=== PATIENT | female | born 1940 | race Caucasian/White ===

== ENCOUNTER 2018-07-25 11:12 | Inpatient (IN) | payer MEDICARE, OTHER ==
[~2018-07-25] VITALS: Ht 157.5 cm; Wt 44.8 kg
[2018-07-25] MEDS ORDERED: MORPHINE SULFATE 4 MG/ML, 1ML IVPush PRN (11:30)
[2018-07-25] MEDS ORDERED: SODIUM CHLORIDE FLUSH 10ML SYR IVF ONE (11:30)
[2018-07-25] MEDS ORDERED: MORPHINE SULFATE 4 MG/ML, 1ML ONE (11:43)
[2018-07-25] MEDS ORDERED: PLEASE ENTER ALLERGIES MC SCH (12:00)
[2018-07-25] MEDS ORDERED: ONDANSETRON 2MG/ML, 2ML IVPush PRN (12:00)
[2018-07-25] MEDS ORDERED: PLEASE ENTER HEIGHT AND WEIGHT MC SCH (12:00)
[2018-07-25 12:03] LABS: BASOPHILS # (AUTO) 0.04 x10^3/uL (0-0.1); BASOPHILS % (AUTO) 1 % (0-1); EOSINOPHILS # (AUTO) 0.06 x10^3/uL (0-0.4); EOSINOPHILS % (AUTO) 2 % (1-7); LYMPHOCYTES # (AUTO) 0.83 x10^3/uL (1-3.4); LYMPHOCYTES % (AUTO) 19 % (22-44); MD NO; MEAN CORPUSCULAR HEMOGLOBIN 32.5 pg (27.0-34.8); MEAN CORPUSCULAR VOLUME 95.5 fL (80-100); MEAN PLATELET VOLUME 7.9 fL (7.4-10.4); MONOCYTES # (AUTO) 0.35 x10^3/uL (0.2-0.8); MONOCYTES % (AUTO) 8 % (2-9); NEUTROPHILS # (AUTO) 3.07 x10^3/uL (1.8-6.8); NEUTROPHILS % (AUTO) 71 % (42-75); PLATELET COUNT 463 x10^3/uL (130-400); RED BLOOD COUNT 4.08 x10^6/uL (3.82-5.3); RED CELL DISTRIBUTION WIDTH 13.5 % (9.6-15.2)
[2018-07-25 12:05] LABS: ALANINE AMINOTRANSFERASE 13 U/L (12-78); ALBUMIN 3.3 g/dL (3.4-5.0); ANION GAP 9 mmol/L (5-15); CALCIUM 8.8 mg/dL (8.5-10.1); CHLORIDE 103 mmol/L (98-107); CREATININE 0.45 mg/dL (0.55-1.02)
[2018-07-25 12:07] LABS: ALKALINE PHOSPHATASE 163 U/L (45-117); BILIRUBIN,TOTAL 0.6 mg/dL (0.2-1.0); TOTAL PROTEIN 7.9 g/dL (6.4-8.2)
[2018-07-25 12:21] LABS: MICROSCOPIC NOT IND
[2018-07-25 12:23] LABS: CULTURE INDICATED? NO
[2018-07-25 12:34] LABS: TROPONIN I < 0.015 ng/mL (0.000-0.045)
[2018-07-25] MEDS ORDERED: OMNIPAQUE 350 MG/ML, 100ML BOTTLE ONE (13:15)
[2018-07-25] MEDS ORDERED: VANCOMYCIN PER PHARMACY MC ONE (14:00)
[2018-07-25] MEDS ORDERED: VANCOMYCIN PMX 1GM/200ML 200 ML IV ONE (14:30)
[2018-07-25] MEDS ORDERED: CEFAZOLIN PMX 1GM/50ML 50 ML IV ONE (15:00)
[2018-07-25] MEDS ORDERED: LIDOCAINE 2%, 10ML INFIL ONE (15:00)
[2018-07-25] MEDS ORDERED: CYCLOBENZAPRINE 10 MG TABLET PO PRN (15:30)
[2018-07-25] MEDS ORDERED: GABAPENTIN 300 MG CAPSULE PO PRN (15:30)
[2018-07-25] MEDS ORDERED: HEPARIN 5,000 UNITS/ML, 1ML SQ SCH (15:30)
[2018-07-25] MEDS ORDERED: ENALAPRILAT 1.25 MG/ML, 2ML IVPush PRN (15:30)
[2018-07-25] MEDS ORDERED: ACETAMINOPHEN 325 MG TABLET PO PRN (15:30)
[2018-07-25] MEDS: INSULIN LISPRO 100 UNITS/ML, PEN SQ-INSULIN SCH ×2 (16:00→19:57)
[2018-07-25 16:07] VITALS: BP 129/76
[2018-07-25] MEDS: POTASSIUM CHLORIDE 20 MEQ PACKET PO SCH (17:40)
[2018-07-25] MEDS: SODIUM CHLORIDE 0.9% 1,000 ML IV SCH (17:40)
[2018-07-25] MEDS: ATORVASTATIN 40 MG TABLET PO SCH (19:57)
[2018-07-25 21:10] LABS: PREALBUMIN 24.8 mg/dL (20.0-40.0)
[2018-07-26 01:18] VITALS: BP 154/80
[2018-07-26] MEDS: SODIUM CHLORIDE 0.9% 1,000 ML IV SCH ×2 (05:52→19:52)
[2018-07-26 06:17] LABS: BASOPHILS # (AUTO) 0.06 x10^3/uL (0-0.1); BASOPHILS % (AUTO) 1 % (0-1); EOSINOPHILS # (AUTO) 0.11 x10^3/uL (0-0.4); EOSINOPHILS % (AUTO) 2 % (1-7); LYMPHOCYTES # (AUTO) 1.31 x10^3/uL (1-3.4); LYMPHOCYTES % (AUTO) 25 % (22-44); MD NO; MEAN CORPUSCULAR HEMOGLOBIN 33.2 pg (27.0-34.8); MEAN CORPUSCULAR HGB CONC 34.4 g/dL (32.4-35.8); MEAN CORPUSCULAR VOLUME 96.5 fL (80-100); MEAN PLATELET VOLUME 8.4 fL (7.4-10.4); MONOCYTES # (AUTO) 0.53 x10^3/uL (0.2-0.8); MONOCYTES % (AUTO) 10 % (2-9); NEUTROPHILS # (AUTO) 3.33 x10^3/uL (1.8-6.8); NEUTROPHILS % (AUTO) 62 % (42-75); PLATELET COUNT 403 x10^3/uL (130-400); RED BLOOD COUNT 3.81 x10^6/uL (3.82-5.3); RED CELL DISTRIBUTION WIDTH 13.6 % (9.6-15.2)
[2018-07-26 06:25] LABS: ANION GAP 8 mmol/L (5-15); CALCIUM 8.4 mg/dL (8.5-10.1); CHLORIDE 104 mmol/L (98-107)
[2018-07-26 06:29] LABS: ALANINE AMINOTRANSFERASE 11 U/L (12-78); ALKALINE PHOSPHATASE 139 U/L (45-117); BILIRUBIN,TOTAL 0.6 mg/dL (0.2-1.0); CREATININE 0.39 mg/dL (0.55-1.02); TOTAL PROTEIN 7.2 g/dL (6.4-8.2)
[2018-07-26] MEDS ORDERED: ERGOCALCIFEROL 50,000 UNIT CAPSULE PO SCH (06:30)
[2018-07-26] MEDS: INSULIN LISPRO 100 UNITS/ML, PEN SQ-INSULIN SCH ×4 (07:52→20:59)
[2018-07-26] MEDS: ASPIRIN 81 MG TABLET CHEW PO SCH (07:52)
[2018-07-26] MEDS: POTASSIUM CHLORIDE 20 MEQ PACKET PO SCH (07:52)
[2018-07-26 07:56] VITALS: BP 170/72
[2018-07-26 12:00] VITALS: BP 135/67
[2018-07-26 12:37] LABS: HEMOGLOBIN A1C 9.4 % (4.2-6.3)
[2018-07-26] MEDS ORDERED: POTASSIUM CHLORIDE 20 MEQ PACKET PO SCH (17:00)
[2018-07-26 18:48] VITALS: BP 148/73
[2018-07-26] MEDS: ATORVASTATIN 40 MG TABLET PO SCH (20:36)
[2018-07-26] MEDS ORDERED: INSULIN GLARGINE 100 UNITS/ML, PEN SQ-INSULIN SCH (21:00)
[2018-07-27 01:33] VITALS: BP 124/64
[2018-07-27 05:03] LABS: ALBUMIN 2.9 g/dL (3.4-5.0); ANION GAP 7 mmol/L (5-15); CALCIUM 8.9 mg/dL (8.5-10.1); CHLORIDE 103 mmol/L (98-107)
[2018-07-27 05:09] LABS: ALANINE AMINOTRANSFERASE 13 U/L (12-78); ALKALINE PHOSPHATASE 129 U/L (45-117); BILIRUBIN,TOTAL 0.5 mg/dL (0.2-1.0); CREATININE 0.39 mg/dL (0.55-1.02); TOTAL PROTEIN 7.1 g/dL (6.4-8.2)
[2018-07-27] MEDS ORDERED: ENOXAPARIN 40 MG/0.4 ML SQ SCH (06:30)
[2018-07-27] MEDS: INSULIN LISPRO 100 UNITS/ML, PEN SQ-INSULIN SCH ×2 (07:00→11:00)
[2018-07-27 07:25] VITALS: BP 148/81
[2018-07-27] MEDS ORDERED: POTASSIUM CHLORIDE 20 MEQ PACKET PO SCH (09:00)
[2018-07-27] MEDS: ASPIRIN 81 MG TABLET CHEW PO SCH (09:10)
[2018-07-27] MEDS: SODIUM CHLORIDE 0.9% 1,000 ML IV SCH (09:40)
[2018-07-27 13:10] VITALS: BP 133/67
[2018-07-27] MEDS ORDERED: METF500T PO (14:47)
[2018-07-27] MEDS ORDERED: ATOR40TA78 PO (14:47)
[2018-07-27] MEDS ORDERED: ERGO500017 PO (14:47)
[2018-07-27] MEDS ORDERED: ACET325T14 PO (14:47)
[2018-07-27] MEDS ORDERED: ASPI-515 PO (14:47)
[2018-07-27] MEDS ORDERED: POTA20TA6 PO (14:47)
[2018-07-27] MEDS ORDERED: INSULIN GLARGINE 100 UNITS/ML, PEN SQ-INSULIN SCH (21:00)
== END 2018-07-27 16:51 | disposition home or self-care (01) | DRG 563 ==
LOC: ED 14:19 → EDIP 14:20 → ED 14:41 → 3NE 15:38
PROVIDERS: ADMIT Hospitalist; ATTEND Hospitalist
PROC: 0J9F3ZX Drainage of Left Upper Arm Subcutaneous Tissue and Fascia, Percutaneous Approach, Diagnostic (ICD-10-PCS; principal; 2018-07-27)
DX: S42.212A Unspecified displaced fracture of surgical neck of left humerus, initial encounter for closed fracture (principal); E44.0 Moderate protein-calorie malnutrition; L02.414 Cutaneous abscess of left upper limb; I69.954 Hemiplegia and hemiparesis following unspecified cerebrovascular disease affecting left non-dominant side; Z68.1 Body mass index [BMI] 19.9 or less, adult; E87.6 Hypokalemia; E11.65 Type 2 diabetes mellitus with hyperglycemia; S20.212A Contusion of left front wall of thorax, initial encounter; Z66 Do not resuscitate; R62.7 Adult failure to thrive; R32 Unspecified urinary incontinence; W19.XXXA Unspecified fall, initial encounter; E55.9 Vitamin D deficiency, unspecified; Z79.84 Long term (current) use of oral hypoglycemic drugs; Z83.3 Family history of diabetes mellitus; Z87.891 Personal history of nicotine dependence; Y93.89 Activity, other specified; Y92.89 Other specified places as the place of occurrence of the external cause; Y99.8 Other external cause status
CPT/HCPCS: 36415; 71045; 80053; 81003; 82306; 82465; 82607; 82962; 83036; 83605; 83735; 84134; 84443; 84484; 85025; 85651; 86140; 87040; 87070; 87205; 93005; 96365; 96375; 99285; J1650; J3370; Q9967; J1815; J7030

== ENCOUNTER 2018-09-25 00:56 | Observation (INO) | payer OTHER ==
[~2018-09-25] VITALS: Ht 160 cm; Wt 46.2 kg
[~2018-09-25 00:56] MED LIST: ACET325T14 PO; ASPI-515 PO; ATOR40TA78 PO; ERGO500017 PO; METF500T PO; POTA20TA6 PO
[2018-09-25] MEDS ORDERED: ACETAMINOPHEN 500 MG TABLET ONE (01:06)
[2018-09-25] MEDS ORDERED: ACETAMINOPHEN 500 MG TABLET PO ONE (01:30)
[2018-09-25] MEDS ORDERED: OXYcodone 5 MG/5 ML ORAL.SOL UDC PO PRN (02:30)
[2018-09-25] MEDS ORDERED: OXYcodone 5 MG/5 ML ORAL.SOL UDC ONE (02:35)
[2018-09-25 02:49] LABS: BASOPHILS # (AUTO) 0.03 x10^3/uL (0-0.1); BASOPHILS % (AUTO) 0 % (0-1); EOSINOPHILS # (AUTO) 0.04 x10^3/uL (0-0.4); EOSINOPHILS % (AUTO) 0 % (1-7); LYMPHOCYTES # (AUTO) 0.64 x10^3/uL (1-3.4); LYMPHOCYTES % (AUTO) 8 % (22-44); MD NO; MEAN CORPUSCULAR HEMOGLOBIN 32.5 pg (27.0-34.8); MEAN CORPUSCULAR HGB CONC 34.2 g/dL (32.4-35.8); MEAN CORPUSCULAR VOLUME 94.9 fL (80-100); MEAN PLATELET VOLUME 8.5 fL (7.4-10.4); MONOCYTES # (AUTO) 0.42 x10^3/uL (0.2-0.8); MONOCYTES % (AUTO) 5 % (2-9); NEUTROPHILS # (AUTO) 6.92 x10^3/uL (1.8-6.8); NEUTROPHILS % (AUTO) 86 % (42-75); PLATELET COUNT 278 x10^3/uL (130-400); RED CELL DISTRIBUTION WIDTH 12.9 % (9.6-15.2)
[2018-09-25 02:58] LABS: ALBUMIN 3.2 g/dL (3.4-5.0); ANION GAP 11 mmol/L (5-15); CALCIUM 8.6 mg/dL (8.5-10.1); CHLORIDE 103 mmol/L (98-107); CREATININE 0.45 mg/dL (0.55-1.02)
[2018-09-25] MEDS ORDERED: SODIUM CHLORIDE 0.9% 1,000 ML IV SCH (05:11)
[2018-09-25 05:22] VITALS: BP 123/70
[2018-09-25] MEDS ORDERED: ONDANSETRON 2MG/ML, 2ML IVPush PRN (05:30)
[2018-09-25] MEDS ORDERED: POLYETHYLENE GLYCOL 17 GM PACKET PO PRN (05:30)
[2018-09-25] MEDS ORDERED: hydrALAzine 20 MG/ML, 1ML IVPush PRN (05:30)
[2018-09-25] MEDS: ACETAMINOPHEN 325 MG TABLET PO PRN ×2 (06:42→16:21)
[2018-09-25 10:00] VITALS: BP 123/70
[2018-09-25 13:25] VITALS: BP 120/69
[2018-09-25 16:49] LABS: MICROSCOPIC NOT IND
[2018-09-25 16:54] LABS: CULTURE INDICATED? NO
== END 2018-09-25 17:44 | disposition home or self-care (01) ==
LOC: ED 02:53 → INTOOBSV 04:47 → EDIP 04:47 → SUATTDRO 04:48 → 4NOR 05:15
PROVIDERS: ADMIT Hospitalist; ATTEND Hospitalist
DX: R42 Dizziness and giddiness (principal); M54.9 Dorsalgia, unspecified; E11.9 Type 2 diabetes mellitus without complications; G89.11 Acute pain due to trauma; I63.9 Cerebral infarction, unspecified; W01.0XXA Fall on same level from slipping, tripping and stumbling without subsequent striking against object, initial encounter; Z83.3 Family history of diabetes mellitus; Z86.73 Personal history of transient ischemic attack (TIA), and cerebral infarction without residual deficits
CPT/HCPCS: 36415; 71045; 72110; 72131; 73590; 80048; 81003; 82040; 85025; 90471; 90656; 93005; 96360; 96361; 97163; 97166; 97530; 97535; 99285; G0378; G8978; G8979; G8980; J7030

== ENCOUNTER 2018-10-20 21:15 | Emergency (ER) | payer OTHER ==
[~2018-10-20] VITALS: Ht 167.6 cm; Wt 50.0 kg
[2018-10-20] MEDS ORDERED: DIPH,PERTUSS(ACELL),TET VAC/PF 0.5 ML IM-VACC ONE ×2 (21:30→22:37)
[2018-10-20 21:39] LABS: BASOPHILS # (AUTO) 0.04 x10^3/uL (0-0.1); BASOPHILS % (AUTO) 1 % (0-1); EOSINOPHILS # (AUTO) 0.11 x10^3/uL (0-0.4); EOSINOPHILS % (AUTO) 2 % (1-7); LYMPHOCYTES # (AUTO) 1.64 x10^3/uL (1-3.4); LYMPHOCYTES % (AUTO) 37 % (22-44); MD NO; MEAN CORPUSCULAR HEMOGLOBIN 31.4 pg (27.0-34.8); MEAN CORPUSCULAR HGB CONC 33.6 g/dL (32.4-35.8); MEAN CORPUSCULAR VOLUME 93.4 fL (80-100); MONOCYTES # (AUTO) 0.36 x10^3/uL (0.2-0.8); MONOCYTES % (AUTO) 8 % (2-9); NEUTROPHILS # (AUTO) 2.33 x10^3/uL (1.8-6.8); NEUTROPHILS % (AUTO) 52 % (42-75); PLATELET COUNT 319 x10^3/uL (130-400); RED BLOOD COUNT 4.32 x10^6/uL (3.82-5.3); RED CELL DISTRIBUTION WIDTH 12.8 % (9.6-15.2)
[2018-10-20 21:49] LABS: ANION GAP 8 mmol/L (5-15); CALCIUM 8.8 mg/dL (8.5-10.1); CHLORIDE 105 mmol/L (98-107); CREATININE 0.51 mg/dL (0.55-1.02)
[2018-10-20 21:50] LABS: ALBUMIN 3.4 g/dL (3.4-5.0)
[2018-10-21] MEDS ORDERED: HYDROcodone/APAP 5/325 TABLET PO ONE (01:00)
[2018-10-21 01:21] VITALS: BP 109/64
== END 2018-10-21 01:27 | disposition home or self-care (01) ==
LOC: ED 22:02
DX: S32.010A Wedge compression fracture of first lumbar vertebra, initial encounter for closed fracture (principal); S01.111A Laceration without foreign body of right eyelid and periocular area, initial encounter; E11.9 Type 2 diabetes mellitus without complications; M54.9 Dorsalgia, unspecified; G89.29 Other chronic pain; R51 Headache; F10.129 Alcohol abuse with intoxication, unspecified; W01.0XXA Fall on same level from slipping, tripping and stumbling without subsequent striking against object, initial encounter; Y93.89 Activity, other specified; Y99.8 Other external cause status; Y92.009 Unspecified place in unspecified non-institutional (private) residence as the place of occurrence of the external cause
CPT/HCPCS: 36415; 70450; 72110; 72125; 72131; 80048; 80307; 82040; 85025; 90471; 90715

== ENCOUNTER 2018-12-23 12:07 | Inpatient (IN) | payer MEDICARE, OTHER ==
[~2018-12-23] VITALS: Ht 162.6 cm; Wt 45.1 kg
[2018-12-23] MEDS ORDERED: SODIUM CHLORIDE FLUSH 10ML SYR IVF ONE (13:00)
[2018-12-23 13:18] LABS: BASOPHILS # (AUTO) 0.04 x10^3/uL (0-0.1); BASOPHILS % (AUTO) 1 % (0-1); EOSINOPHILS # (AUTO) 0.02 x10^3/uL (0-0.4); EOSINOPHILS % (AUTO) 0 % (1-7); LYMPHOCYTES % (AUTO) 15 % (22-44); MD NO; MEAN CORPUSCULAR HEMOGLOBIN 31.6 pg (27.0-34.8); MEAN CORPUSCULAR HGB CONC 33.9 g/dL (32.4-35.8); MEAN CORPUSCULAR VOLUME 93.3 fL (80-100); MEAN PLATELET VOLUME 8.6 fL (7.4-10.4); MONOCYTES # (AUTO) 0.44 x10^3/uL (0.2-0.8); MONOCYTES % (AUTO) 7 % (2-9); NEUTROPHILS % (AUTO) 77 % (42-75); PLATELET COUNT 329 x10^3/uL (130-400); RED CELL DISTRIBUTION WIDTH 13.2 % (9.6-15.2)
[2018-12-23 13:33] LABS: ALBUMIN 3.6 g/dL (3.4-5.0); ANION GAP 8 mmol/L (5-15); CALCIUM 9.8 mg/dL (8.5-10.1); CHLORIDE 101 mmol/L (98-107)
[2018-12-23 13:40] LABS: CREATININE 0.52 mg/dL (0.55-1.02); TROPONIN I < 0.015 ng/mL (0.000-0.045)
--- NOTE | 2018-12-23 14:03 | NUR ---
LATE NOTE ENTRY FOR 1215. Pt presents to ED by EMS with c/o "10/10 lower back pain and mulitple ground level falls at home." Pt is unable to remember when her last fall was. Pt is AOX3. Pt states, "My is an alcoholic and is here as a patient for detox. I need to find him." Pt presents to ED in disposable briefs. Pt states she tries to change herself at home in her briefs as she is not able to get up to the bathroom. PREETI. Pt resting on gurney connected to all monitors. Call light within reach.
--- NOTE | 2018-12-23 14:07 | NUR ---
Provided pt crackers and water per pt request. ED PA aware. Pt states, "I will do the catheter after I eat".
[2018-12-23] MEDS ORDERED: SODIUM CHLORIDE FLUSH 10ML SYR IVF PRN (14:30)
[2018-12-23 14:48] LABS: MICROSCOPIC NOT IND
[2018-12-23] MEDS ORDERED: SODIUM CHLORIDE 0.9% 1,000 ML IV SCH (14:55)
[2018-12-23] MEDS ORDERED: ONDANSETRON 2MG/ML, 2ML IVPush PRN (15:00)
[2018-12-23] MEDS ORDERED: POLYETHYLENE GLYCOL 17 GM PACKET PO PRN (15:00)
[2018-12-23] MEDS ORDERED: LABETALOL 5MG/ML, 20ML IVPush PRN (15:00)
[2018-12-23] MEDS ORDERED: ONDANSETRON ODT 4 MG PO PRN (15:00)
[2018-12-23 15:01] LABS: CULTURE INDICATED? NO
--- NOTE | 2018-12-23 15:44 | NUR ---
Pt refusing CT. ERP notified.
--- NOTE | 2018-12-23 15:51 | NUR ---
Provided report to BRANDON Triana. All questions answered. Pt ready to transfer to floor from ER.
[2018-12-23 16:00] VITALS: BP 133/74
[2018-12-23] MEDS ORDERED: DEXTROSE 50%, 50ML SYRINGE IVPush PRN (16:00)
[2018-12-23] MEDS ORDERED: GLUCAGON 1 MG IM PRN (16:00)
[2018-12-23] MEDS ORDERED: DEXTROSE 4 GM TAB.CHEW PO PRN (16:00)
--- NOTE | 2018-12-23 16:01 | NUR ---
Pt transfered to floor from ED with all personal belongings.
[2018-12-23 16:18] LABS: FREE T4 (FREE THYROXINE) 1.44 ng/dL (0.76-1.46)
[2018-12-23 16:35] LABS: HCT (SEDRATE) 44.7 % (34.6-47.8)
[2018-12-23] MEDS ORDERED: ENOXAPARIN 30 MG/0.3 ML SQ SCH (17:30)
[2018-12-23 17:55] VITALS: BP 146/78
[2018-12-23 17:57] VITALS: BP 169/63
[2018-12-23] MEDS: INSULIN LISPRO 100 UNITS/ML, PEN SQ-INSULIN SCH ×2 (18:05→21:56)
[2018-12-23 19:06] VITALS: BP 133/72
[2018-12-23] MEDS ORDERED: POTASSIUM CHLORIDE 20 MEQ TAB.ER.PRT PO SCH (20:00)
[2018-12-23] MEDS: FAMOTIDINE 20 MG/2 ML IVPush SCH (21:25)
[2018-12-23] MEDS: SODIUM CHLORIDE FLUSH 10ML SYR IVF SCH (21:28)
[2018-12-23 23:00] VITALS: BP 163/81
[2018-12-24 02:08] VITALS: BP 163/89
[2018-12-24 05:19] LABS: ALANINE AMINOTRANSFERASE 13 U/L (12-78); ALBUMIN 2.8 g/dL (3.4-5.0); ANION GAP 8 mmol/L (5-15); CALCIUM 8.8 mg/dL (8.5-10.1); CHLORIDE 102 mmol/L (98-107); CREATININE 0.43 mg/dL (0.55-1.02)
[2018-12-24 05:30] LABS: ALKALINE PHOSPHATASE 109 U/L (45-117); BILIRUBIN,TOTAL 0.8 mg/dL (0.2-1.0)
[2018-12-24 06:35] LABS: BASOPHILS # (AUTO) 0.05 x10^3/uL (0-0.1); BASOPHILS % (AUTO) 1 % (0-1); EOSINOPHILS # (AUTO) 0.08 x10^3/uL (0-0.4); EOSINOPHILS % (AUTO) 1 % (1-7); LYMPHOCYTES % (AUTO) 26 % (22-44); MD NO; MEAN CORPUSCULAR HEMOGLOBIN 32.4 pg (27.0-34.8); MEAN CORPUSCULAR HGB CONC 34.6 g/dL (32.4-35.8); MEAN CORPUSCULAR VOLUME 93.6 fL (80-100); MEAN PLATELET VOLUME 8.7 fL (7.4-10.4); MONOCYTES # (AUTO) 0.55 x10^3/uL (0.2-0.8); MONOCYTES % (AUTO) 10 % (2-9); NEUTROPHILS # (AUTO) 3.39 x10^3/uL (1.8-6.8); NEUTROPHILS % (AUTO) 62 % (42-75); PLATELET COUNT 304 x10^3/uL (130-400); RED BLOOD COUNT 4.13 x10^6/uL (3.82-5.3); RED CELL DISTRIBUTION WIDTH 13.3 % (9.6-15.2)
[2018-12-24 06:40] VITALS: BP 145/75
[2018-12-24] MEDS: INSULIN LISPRO 100 UNITS/ML, PEN SQ-INSULIN SCH ×4 (07:39→21:00)
[2018-12-24] MEDS: SODIUM CHLORIDE FLUSH 10ML SYR IVF SCH ×2 (07:39→20:01)
[2018-12-24] MEDS ORDERED: POTASSIUM CHLORIDE 20 MEQ TAB.ER.PRT PO ONE ×3 (08:00→15:30)
[2018-12-24] MEDS: FAMOTIDINE 20 MG/2 ML IVPush SCH ×2 (08:20→20:07)
[2018-12-24] MEDS: SENNA/DOCUSATE TABLET PO SCH (08:20)
[2018-12-24 08:29] LABS: HEMOGLOBIN A1C 7.2 % (4.2-6.3)
[2018-12-24] MEDS: LIDODERM 5% PATCH TD SCH (09:53)
[2018-12-24] MEDS: SODIUM CHLORIDE 0.9% 1,000 ML IV SCH ×3 (10:02→20:07)
[2018-12-24 14:00] VITALS: BP 136/78
[2018-12-24] MEDS ORDERED: LORazepam 2 MG/ML, 1ML ONE (15:24)
[2018-12-24] MEDS ORDERED: LORazepam 2 MG/ML, 1ML IM PRN (15:30)
[2018-12-24 17:30] VITALS: BP 179/92
[2018-12-24] MEDS ORDERED: ENOXAPARIN 40 MG/0.4 ML ONE (17:44)
[2018-12-24] MEDS: ENOXAPARIN 40 MG/0.4 ML SQ SCH (17:47)
[2018-12-24] MEDS ORDERED: FAMOTIDINE 20 MG/2 ML ONE (20:04)
[2018-12-24] MEDS ORDERED: HALOPERIDOL 5 MG/ML IM ONE (21:00)
[2018-12-24 21:30] VITALS: BP 180/73
[2018-12-24] MEDS: INSULIN GLARGINE 100 UNITS/ML, PEN SQ-INSULIN SCH (22:07)
[2018-12-24] MEDS ORDERED: hydrALAzine 20 MG/ML, 1ML ONE (22:46)
[2018-12-24] MEDS: hydrALAzine 20 MG/ML, 1ML IV PRN (22:53)
[2018-12-25 02:21] VITALS: BP 119/68
[2018-12-25] MEDS: INSULIN LISPRO 100 UNITS/ML, PEN SQ-INSULIN SCH ×4 (07:00→21:19)
[2018-12-25 07:20] VITALS: BP 181/79
[2018-12-25 07:37] LABS: MEAN CORPUSCULAR HEMOGLOBIN 31.4 pg (27.0-34.8); MEAN CORPUSCULAR HGB CONC 33.9 g/dL (32.4-35.8); MEAN CORPUSCULAR VOLUME 92.8 fL (80-100); MEAN PLATELET VOLUME 8.2 fL (7.4-10.4); PLATELET COUNT 356 x10^3/uL (130-400); RED BLOOD COUNT 4.45 x10^6/uL (3.82-5.3)
[2018-12-25 07:44] LABS: ALANINE AMINOTRANSFERASE 15 U/L (12-78); ANION GAP 8 mmol/L (5-15); CALCIUM 9.1 mg/dL (8.5-10.1); CHLORIDE 104 mmol/L (98-107); CREATININE 0.36 mg/dL (0.55-1.02)
[2018-12-25 07:46] LABS: ALKALINE PHOSPHATASE 124 U/L (45-117); BILIRUBIN,TOTAL 0.8 mg/dL (0.2-1.0); TOTAL PROTEIN 6.9 g/dL (6.4-8.2)
[2018-12-25 07:57] LABS: BASOPHILS # (AUTO) 0.02 x10^3/uL (0-0.1); BASOPHILS % (AUTO) 0 % (0-1); EOSINOPHILS # (AUTO) 0.04 x10^3/uL (0-0.4); EOSINOPHILS % (AUTO) 1 % (1-7); LYMPHOCYTES # (AUTO) 0.93 x10^3/uL (1-3.4); LYMPHOCYTES % (AUTO) 18 % (22-44); MD SCAN; MONOCYTES # (AUTO) 0.49 x10^3/uL (0.2-0.8); MONOCYTES % (AUTO) 9 % (2-9); NEUTROPHILS # (AUTO) 3.71 x10^3/uL (1.8-6.8); NEUTROPHILS % (AUTO) 72 % (42-75)
[2018-12-25] MEDS ORDERED: POTASSIUM CHLORIDE 10% 40 MEQ/30 ML UDC PO ONE ×2 (08:30→11:30)
[2018-12-25] MEDS: SENNA/DOCUSATE TABLET PO SCH (09:00)
[2018-12-25] MEDS: SODIUM CHLORIDE FLUSH 10ML SYR IVF SCH ×2 (09:00→21:20)
[2018-12-25] MEDS ORDERED: SENNA/DOCUSATE TABLET ONE (09:11)
[2018-12-25] MEDS ORDERED: FAMOTIDINE 20 MG/2 ML ONE ×2 (09:11→21:12)
[2018-12-25] MEDS ORDERED: LIDODERM 5% PATCH TD ONE (09:12)
[2018-12-25] MEDS: LIDODERM 5% PATCH TD SCH (09:30)
[2018-12-25] MEDS ORDERED: QUETIAPINE 25MG TABLET PO SCH (09:30)
[2018-12-25] MEDS: SODIUM CHLORIDE 0.9% 1,000 ML IV SCH ×2 (09:40→21:20)
[2018-12-25] MEDS: FAMOTIDINE 20 MG/2 ML IVPush SCH ×2 (09:41→21:19)
[2018-12-25 09:53] VITALS: BP 130/60
[2018-12-25] MEDS: DIVALPROEX 125 MG TABLET.DR PO SCH ×2 (09:53→21:20)
[2018-12-25] MEDS ORDERED: MAGNESIUM SULFATE PMX 2GM/50ML 50 ML IV ONE (13:30)
[2018-12-25] MEDS ORDERED: POTASSIUM CHLORIDE 20 MEQ TAB.ER.PRT PO ONE (13:30)
[2018-12-25 14:07] VITALS: BP 152/74
[2018-12-25] MEDS: ACETAMINOPHEN 325 MG TABLET PO PRN (16:22)
[2018-12-25] MEDS ORDERED: ENOXAPARIN 40 MG/0.4 ML ONE (17:03)
[2018-12-25] MEDS: ENOXAPARIN 40 MG/0.4 ML SQ SCH (17:08)
[2018-12-25 19:46] VITALS: BP 164/76
[2018-12-25] MEDS: INSULIN GLARGINE 100 UNITS/ML, PEN SQ-INSULIN SCH (21:19)
[2018-12-26 02:56] VITALS: BP 199/94
[2018-12-26] MEDS: SODIUM CHLORIDE 0.9% 1,000 ML IV SCH ×2 (03:47→12:34)
[2018-12-26] MEDS: hydrALAzine 20 MG/ML, 1ML IV PRN (03:47)
[2018-12-26] MEDS ORDERED: PANTOPROZOLE 40MG TABLET ONE (04:48)
[2018-12-26 04:58] VITALS: BP 117/60
[2018-12-26 05:29] LABS: ALBUMIN 2.7 g/dL (3.4-5.0); ANION GAP 9 mmol/L (5-15); CALCIUM 8.4 mg/dL (8.5-10.1); CHLORIDE 110 mmol/L (98-107); CREATININE 0.29 mg/dL (0.55-1.02)
[2018-12-26 06:48] VITALS: BP 132/61
[2018-12-26] MEDS: INSULIN LISPRO 100 UNITS/ML, PEN SQ-INSULIN SCH ×4 (07:00→20:26)
[2018-12-26] MEDS: SENNA/DOCUSATE TABLET PO SCH (08:44)
[2018-12-26] MEDS ORDERED: LIDODERM 5% PATCH TD ONE (08:45)
[2018-12-26] MEDS ORDERED: FAMOTIDINE 20 MG/2 ML ONE ×2 (08:45→20:20)
[2018-12-26] MEDS: ACETAMINOPHEN 325 MG TABLET PO PRN (08:53)
[2018-12-26] MEDS: LIDODERM 5% PATCH TD SCH (08:53)
[2018-12-26] MEDS: FAMOTIDINE 20 MG/2 ML IVPush SCH ×2 (08:54→20:25)
[2018-12-26] MEDS: DIVALPROEX 125 MG TABLET.DR PO SCH ×2 (08:54→20:11)
[2018-12-26] MEDS: SODIUM CHLORIDE FLUSH 10ML SYR IVF SCH ×2 (09:20→20:14)
[2018-12-26 13:28] VITALS: BP 111/71
[2018-12-26] MEDS: ENOXAPARIN 40 MG/0.4 ML SQ SCH (18:11)
[2018-12-26] MEDS: INSULIN GLARGINE 100 UNITS/ML, PEN SQ-INSULIN SCH (20:27)
[2018-12-26 20:45] VITALS: BP 156/83
[2018-12-27 02:21] VITALS: BP 159/73
[2018-12-27 06:05] LABS: BASOPHILS # (AUTO) 0.05 x10^3/uL (0-0.1); BASOPHILS % (AUTO) 1 % (0-1); EOSINOPHILS # (AUTO) 0.05 x10^3/uL (0-0.4); EOSINOPHILS % (AUTO) 1 % (1-7); LYMPHOCYTES # (AUTO) 1.11 x10^3/uL (1-3.4); LYMPHOCYTES % (AUTO) 23 % (22-44); MD NO; MEAN CORPUSCULAR HEMOGLOBIN 32.3 pg (27.0-34.8); MEAN CORPUSCULAR HGB CONC 34.2 g/dL (32.4-35.8); MEAN CORPUSCULAR VOLUME 94.4 fL (80-100); MEAN PLATELET VOLUME 8.7 fL (7.4-10.4); MONOCYTES # (AUTO) 0.53 x10^3/uL (0.2-0.8); MONOCYTES % (AUTO) 11 % (2-9); NEUTROPHILS # (AUTO) 3.09 x10^3/uL (1.8-6.8); NEUTROPHILS % (AUTO) 64 % (42-75); PLATELET COUNT 323 x10^3/uL (130-400); RED BLOOD COUNT 4.15 x10^6/uL (3.82-5.3); RED CELL DISTRIBUTION WIDTH 13.3 % (9.6-15.2)
[2018-12-27 06:11] LABS: ALBUMIN 2.7 g/dL (3.4-5.0); ANION GAP 8 mmol/L (5-15); CALCIUM 8.6 mg/dL (8.5-10.1); CHLORIDE 108 mmol/L (98-107); CREATININE 0.31 mg/dL (0.55-1.02)
[2018-12-27 06:44] VITALS: BP 152/67
[2018-12-27] MEDS: INSULIN LISPRO 100 UNITS/ML, PEN SQ-INSULIN SCH ×2 (07:15→10:34)
[2018-12-27] MEDS ORDERED: POTASSIUM CHLORIDE 20 MEQ TAB.ER.PRT PO ONE ×2 (07:30→11:30)
[2018-12-27] MEDS ORDERED: POTASSIUM CHLORIDE 40 MEQ in SODIUM CHLORIDE 0.9% 500 ML IV ONE (07:30)
[2018-12-27] MEDS: DIVALPROEX 125 MG TABLET.DR PO SCH (08:29)
[2018-12-27] MEDS: SODIUM CHLORIDE FLUSH 10ML SYR IVF SCH (08:30)
[2018-12-27] MEDS: SENNA/DOCUSATE TABLET PO SCH (08:33)
[2018-12-27] MEDS ORDERED: FAMOTIDINE 20 MG/2 ML IVPush SCH (09:00)
[2018-12-27] MEDS ORDERED: LIDODERM 5% PATCH TD SCH (09:30)
[2018-12-27 13:16] VITALS: BP 158/81
[2018-12-27] MEDS ORDERED: ERGO500017 PO (16:46)
[2018-12-27] MEDS ORDERED: METF500T PO (16:46)
[2018-12-27] MEDS ORDERED: ATOR20TA37 PO (16:46)
[2018-12-27] MEDS ORDERED: POTA20PA25 PO ×2 (16:46)
== END 2018-12-27 14:59 | disposition home or self-care (01) | DRG 542 ==
LOC: ED 13:22 → EDIP 14:28 → 5SO 16:14 → 4NOR 22:58 → UNDODISIN 12-24 17:03 → 4WST 12-24 17:07
PROVIDERS: ADMIT Hospitalist; ATTEND Hospitalist
PROC: 0T9B70Z Drainage of Bladder with Drainage Device, Via Natural or Artificial Opening (ICD-10-PCS; principal; 2018-12-23)
DX: M80.08XA Age-related osteoporosis with current pathological fracture, vertebra(e), initial encounter for fracture (principal); G93.41 Metabolic encephalopathy; F91.9 Conduct disorder, unspecified; E11.65 Type 2 diabetes mellitus with hyperglycemia; E87.6 Hypokalemia; G89.29 Other chronic pain; M19.90 Unspecified osteoarthritis, unspecified site; M51.36 Other intervertebral disc degeneration, lumbar region; M48.061 Spinal stenosis, lumbar region without neurogenic claudication; R29.6 Repeated falls; R62.7 Adult failure to thrive; W18.30XA Fall on same level, unspecified, initial encounter; Y93.89 Activity, other specified; Y92.89 Other specified places as the place of occurrence of the external cause; Y99.8 Other external cause status; I69.344 Monoplegia of lower limb following cerebral infarction affecting left non-dominant side; Z66 Do not resuscitate; Z79.899 Other long term (current) drug therapy; Z91.14 Patient's other noncompliance with medication regimen
CPT/HCPCS: 36415; 71045; 72110; 80048; 80053; 81003; 82040; 82962; 83036; 83605; 83735; 84100; 84439; 84443; 84484; 85025; 85651; 87040; 93005; 99285; G0378; J1650; J3480; J0360; J1630; J1815; J2060; J3475; J3490; J7030; J7040

== ENCOUNTER 2018-12-31 20:57 | Observation (INO) | payer MEDICARE ==
[~2018-12-31] VITALS: Ht 165.1 cm; Wt 37.3 kg
[~2018-12-31 20:57] MED LIST changes: +ATOR20TA37 PO; +POTA20PA25 PO
--- NOTE | 2018-12-31 21:11 | NUR ---
PT LULU, REPORT TAKEN FROM EMS. PT REPORTS C/O INCREASING MIDLINE LOWER BACK PAIN SINCE 08/2018 WHEN SHE SUSTAINED A LUMBAR FX. PT NONAMBULATORY STARTING TODAY D/T PAIN. PT MEDICATED MEAT CURER WITH 1 MG VERSED AND 100MCG FENTANYL. PT NOW DENIES PAIN. PT HAS NO FOCAL WEAKNESS, DENIES N/T. PT REPORTS INCONTINENCE OF BOWEL AND BLADDER, PER SON THIS IS NEW BUT SON AND PT ARE UNABLE TO RECALL WHEN INCONTINENCE STARTED. BP AND SPO2 MONITORS IN PLACE. CALL LIGHT IN REACH. AWAITING MD AND ORDERS AT THIS TIME.
[2018-12-31] MEDS ORDERED: METHOCARBAMOL 750 MG TABLET ONE (21:52)
--- NOTE | 2018-12-31 21:56 | NUR ---
PT MEDICATED PER EMAR. PT TOLERATED WELL. PT AOX4. RESPS EVEN AND UNLABORED. CALL LIGHT WITHIN REACH.
[2018-12-31] MEDS ORDERED: METHOCARBAMOL 750 MG TABLET PO ONE (22:00)
--- NOTE | 2018-12-31 22:26 | NUR ---
OJRDAN ABBOTTO AT BEDSIDE TO DISCUSS RESULTS AND POC WITH PT AND SON. PT'S SON IS REQUESTING ADMISSION HE FEELS PT IS UNSAFE TO BE DISCHARGED HOME. PT'S SON STATES HE IS UNABLE TO MANAGE PT'S NEEDS AND MOBILIZE PT AT HOME. PT'S SON STATES PT DID HAVE HOME VISIT FROM A PCP WHO WAS SUPPOSED TO SET UP HOME HEALTH CARE OR REFER PT TO AN ASSISTED LIVING FACILITY, BUT HE NEVER HEARD BACK FROM THIS PCP AFTER HIS INITIAL EVAL. PT STATES PAIN LEVEL IS TOLERABLE AT THIS TIME, PT UNABLE TO RATE PAIN. PT IS A&O, RESPS EVEN AND UNLABORED. NADN. CALL LIGHT IN REACH. AWAITING FURTHER ORDERS AT THIS TIME.
[2018-12-31 23:02] LABS: ALANINE AMINOTRANSFERASE 22 U/L (12-78); ALBUMIN 3.3 g/dL (3.4-5.0); ANION GAP 6 mmol/L (5-15); CALCIUM 8.9 mg/dL (8.5-10.1); CHLORIDE 102 mmol/L (98-107); CREATININE 0.56 mg/dL (0.55-1.02)
[2018-12-31 23:04] LABS: ALKALINE PHOSPHATASE 216 U/L (45-117); BILIRUBIN,TOTAL 0.4 mg/dL (0.2-1.0); TOTAL PROTEIN 7.4 g/dL (6.4-8.2)
[2018-12-31 23:07] LABS: BASOPHILS # (AUTO) 0.02 x10^3/uL (0-0.1); BASOPHILS % (AUTO) 0 % (0-1); EOSINOPHILS # (AUTO) 0.03 x10^3/uL (0-0.4); EOSINOPHILS % (AUTO) 0 % (1-7); LYMPHOCYTES # (AUTO) 1.33 x10^3/uL (1-3.4); LYMPHOCYTES % (AUTO) 16 % (22-44); MD NO; MEAN CORPUSCULAR HEMOGLOBIN 31.6 pg (27.0-34.8); MEAN CORPUSCULAR HGB CONC 33.8 g/dL (32.4-35.8); MEAN CORPUSCULAR VOLUME 93.7 fL (80-100); MEAN PLATELET VOLUME 8.5 fL (7.4-10.4); MONOCYTES # (AUTO) 0.41 x10^3/uL (0.2-0.8); MONOCYTES % (AUTO) 5 % (2-9); NEUTROPHILS # (AUTO) 6.42 x10^3/uL (1.8-6.8); NEUTROPHILS % (AUTO) 78 % (42-75); PLATELET COUNT 376 x10^3/uL (130-400); RED BLOOD COUNT 4.46 x10^6/uL (3.82-5.3); RED CELL DISTRIBUTION WIDTH 13.5 % (9.6-15.2)
--- NOTE | 2018-12-31 23:53 | NUR ---
PT RESTING IN [facility]. PT AOX4. RESPS EVEN AND UNLABORED. BP AND SPO2 MONITORS IN PLACE. CALL LIGHT WITHIN REACH.
--- NOTE | 2019-01-01 00:04 | NUR ---
REPORT TO BRANDON LARKIN.
--- NOTE | 2019-01-01 00:05 | NUR ---
SBAR report received from RN, Rashawn, and RNPaulette. DAM WORKERAlyssa, at bedside to evaluate pt for admission.
[2019-01-01] MEDS ORDERED: GABAPENTIN 300 MG CAPSULE PO PRN (00:30)
[2019-01-01] MEDS ORDERED: ENOXAPARIN 40 MG/0.4 ML SQ SCH (00:30)
[2019-01-01] MEDS ORDERED: MAALOX/HYOSCYAMINE/LIDOCAINE 45 ML BTL PO ONE (00:30)
[2019-01-01] MEDS ORDERED: METHOCARBAMOL 750 MG TABLET PO PRN (00:30)
[2019-01-01] MEDS ORDERED: hydrALAzine 20 MG/ML, 1ML IVPush PRN (00:30)
[2019-01-01] MEDS ORDERED: ONDANSETRON 2MG/ML, 2ML IVPush PRN (00:30)
[2019-01-01] MEDS ORDERED: DIPHENHYDRAMINE 25 MG CAPSULE PO PRN (00:30)
--- NOTE | 2019-01-01 00:36 | NUR ---
Pt c/o heart burn, this RN to medicate per JAN.
[2019-01-01] MEDS ORDERED: MAALOX/HYOSCYAMINE/LIDOCAINE 45 ML BTL ONE (00:39)
--- NOTE | 2019-01-01 01:21 | NUR ---
Telephone SBAR report given to RNClaudia. Pt made aware of new room assignment.
[2019-01-01 01:45] VITALS: BP 160/72
[2019-01-01] MEDS: D5%-0.45% NACL 1,000 ML IV SCH ×2 (02:00→13:51)
[2019-01-01 05:01] VITALS: BP 160/72
[2019-01-01 08:08] VITALS: BP 184/70
[2019-01-01] MEDS ORDERED: POTASSIUM CHLORIDE 20 MEQ TAB.ER.PRT PO SCH (09:00)
[2019-01-01] MEDS ORDERED: DIVALPROEX 125 MG CAP.SPRINK PO PRN (09:30)
[2019-01-01] MEDS: ACETAMINOPHEN 325 MG TABLET PO PRN ×2 (09:32→20:56)
[2019-01-01 10:55] LABS: BASOPHILS # (AUTO) 0.04 x10^3/uL (0-0.1); BASOPHILS % (AUTO) 1 % (0-1); EOSINOPHILS # (AUTO) 0.03 x10^3/uL (0-0.4); EOSINOPHILS % (AUTO) 1 % (1-7); LYMPHOCYTES # (AUTO) 0.93 x10^3/uL (1-3.4); LYMPHOCYTES % (AUTO) 17 % (22-44); MD NO; MEAN CORPUSCULAR HEMOGLOBIN 31.5 pg (27.0-34.8); MEAN CORPUSCULAR HGB CONC 33.6 g/dL (32.4-35.8); MEAN CORPUSCULAR VOLUME 93.6 fL (80-100); MEAN PLATELET VOLUME 8.3 fL (7.4-10.4); MONOCYTES # (AUTO) 0.41 x10^3/uL (0.2-0.8); MONOCYTES % (AUTO) 7 % (2-9); NEUTROPHILS # (AUTO) 4.19 x10^3/uL (1.8-6.8); NEUTROPHILS % (AUTO) 75 % (42-75); PLATELET COUNT 355 x10^3/uL (130-400); RED CELL DISTRIBUTION WIDTH 13.2 % (9.6-15.2)
[2019-01-01 11:02] LABS: ANION GAP 7 mmol/L (5-15); CHLORIDE 102 mmol/L (98-107); CREATININE 0.45 mg/dL (0.55-1.02)
[2019-01-01] MEDS: DIVALPROEX 125 MG CAP.SPRINK PO SCH ×2 (11:29→20:56)
[2019-01-01 13:11] VITALS: BP 172/80
[2019-01-01] MEDS ORDERED: GADOBUTROL 7.5 MMOL/7.5 ML PFS ONE (13:17)
[2019-01-01] MEDS ORDERED: methylPREDNISolone SOD SUCC 125 MG/2 ML IVPush ONE (13:30)
[2019-01-01] MEDS ORDERED: methylPREDNISolone SOD SUCC 125 MG/2 ML IVPush SCH (13:30)
[2019-01-01] MEDS: AMPICILLIN/SULBACTAM 3 GM in SODIUM CHLORIDE 0.9% 100 ML IV SCH ×2 (15:12→20:56)
[2019-01-01] MEDS ORDERED: METHOCARBAMOL 500 MG TABLET PO PRN (16:30)
[2019-01-01 19:45] VITALS: BP 123/69
[2019-01-01] MEDS: ATORVASTATIN 20 MG TABLET PO SCH (20:56)
[2019-01-02 02:04] VITALS: BP 126/63
[2019-01-02] MEDS: ENOXAPARIN 30 MG/0.3 ML SQ SCH (02:23)
[2019-01-02] MEDS: AMPICILLIN/SULBACTAM 3 GM in SODIUM CHLORIDE 0.9% 100 ML IV SCH ×4 (02:27→20:53)
[2019-01-02] MEDS: D5%-0.45% NACL 1,000 ML IV SCH (05:53)
[2019-01-02 06:05] LABS: ALBUMIN 2.7 g/dL (3.4-5.0); ANION GAP 8 mmol/L (5-15); CALCIUM 9.1 mg/dL (8.5-10.1); CHLORIDE 104 mmol/L (98-107)
[2019-01-02 06:06] LABS: CREATININE 0.44 mg/dL (0.55-1.02)
[2019-01-02 06:07] LABS: BASOPHILS # (AUTO) 0.01 x10^3/uL (0-0.1); BASOPHILS % (AUTO) 0 % (0-1); EOSINOPHILS % (AUTO) 0 % (1-7); LYMPHOCYTES # (AUTO) 0.83 x10^3/uL (1-3.4); LYMPHOCYTES % (AUTO) 18 % (22-44); MD NO; MEAN CORPUSCULAR HEMOGLOBIN 31.7 pg (27.0-34.8); MEAN CORPUSCULAR HGB CONC 34.1 g/dL (32.4-35.8); MEAN PLATELET VOLUME 8.6 fL (7.4-10.4); MONOCYTES # (AUTO) 0.35 x10^3/uL (0.2-0.8); MONOCYTES % (AUTO) 7 % (2-9); NEUTROPHILS # (AUTO) 3.55 x10^3/uL (1.8-6.8); NEUTROPHILS % (AUTO) 75 % (42-75); PLATELET COUNT 360 x10^3/uL (130-400); RED BLOOD COUNT 3.94 x10^6/uL (3.82-5.3); RED CELL DISTRIBUTION WIDTH 13.3 % (9.6-15.2)
[2019-01-02] MEDS: DIVALPROEX 125 MG CAP.SPRINK PO SCH ×2 (07:58→20:54)
[2019-01-02 08:01] VITALS: BP 129/68
[2019-01-02] MEDS ORDERED: GLUCAGON 1 MG IM PRN (14:30)
[2019-01-02] MEDS ORDERED: DEXTROSE 4 GM TAB.CHEW PO PRN (14:30)
[2019-01-02] MEDS ORDERED: DEXTROSE 50%, 50ML SYRINGE IVPush PRN (14:30)
[2019-01-02 14:34] VITALS: BP 133/73
[2019-01-02] MEDS: ACETAMINOPHEN 325 MG TABLET PO PRN ×2 (17:25→23:46)
[2019-01-02] MEDS: INSULIN LISPRO 100 UNITS/ML, PEN SQ-INSULIN SCH ×2 (17:35→20:54)
[2019-01-02 18:36] VITALS: BP 136/72
[2019-01-02] MEDS: SODIUM CHLORIDE FLUSH 10ML SYR IVF SCH (20:53)
[2019-01-02] MEDS: ATORVASTATIN 20 MG TABLET PO SCH (20:54)
[2019-01-03 00:51] VITALS: BP 163/76
[2019-01-03] MEDS: ENOXAPARIN 30 MG/0.3 ML SQ SCH (02:36)
[2019-01-03] MEDS: AMPICILLIN/SULBACTAM 3 GM in SODIUM CHLORIDE 0.9% 100 ML IV SCH ×2 (02:36→08:01)
[2019-01-03] MEDS: INSULIN LISPRO 100 UNITS/ML, PEN SQ-INSULIN SCH ×4 (06:23→20:42)
[2019-01-03 07:44] VITALS: BP 178/70
[2019-01-03] MEDS: DIVALPROEX 125 MG CAP.SPRINK PO SCH ×2 (09:11→20:41)
[2019-01-03] MEDS: SODIUM CHLORIDE FLUSH 10ML SYR IVF SCH ×2 (09:12→20:41)
--- NOTE | 2019-01-03 12:30 | NUR ---
REC REG/THIN; no further ZONING ADMINISTRATOR intervention is indicated Addendum: 01/03/19 at [address] Amended: Links added.
[2019-01-03] MEDS: AMOXICILLIN/CLAV 875-125MG TABLET PO SCH ×2 (13:25→20:41)
[2019-01-03 14:25] VITALS: BP 114/68
[2019-01-03] MEDS: ACETAMINOPHEN 325 MG TABLET PO PRN (18:01)
[2019-01-03 18:40] VITALS: BP 130/65
[2019-01-03] MEDS: ATORVASTATIN 20 MG TABLET PO SCH (20:41)
[2019-01-04 00:06] VITALS: BP 154/82
[2019-01-04] MEDS: ENOXAPARIN 30 MG/0.3 ML SQ SCH (02:04)
[2019-01-04] MEDS: INSULIN LISPRO 100 UNITS/ML, PEN SQ-INSULIN SCH ×4 (07:00→21:20)
[2019-01-04 07:25] VITALS: BP 114/72
[2019-01-04] MEDS: AMOXICILLIN/CLAV 875-125MG TABLET PO SCH ×2 (07:56→21:20)
[2019-01-04] MEDS: DIVALPROEX 125 MG CAP.SPRINK PO SCH ×2 (07:56→21:19)
[2019-01-04] MEDS: SODIUM CHLORIDE FLUSH 10ML SYR IVF SCH ×2 (07:59→21:19)
[2019-01-04 13:37] VITALS: BP 133/72
[2019-01-04 19:14] VITALS: BP 114/67
[2019-01-04] MEDS: ATORVASTATIN 20 MG TABLET PO SCH (21:19)
[2019-01-05] MEDS: ENOXAPARIN 30 MG/0.3 ML SQ SCH (01:46)
[2019-01-05 02:13] VITALS: BP 156/84
[2019-01-05] MEDS: ACETAMINOPHEN 325 MG TABLET PO PRN ×2 (03:50→20:03)
[2019-01-05] MEDS: DIVALPROEX 125 MG CAP.SPRINK PO SCH ×2 (07:25→20:02)
[2019-01-05] MEDS: AMOXICILLIN/CLAV 875-125MG TABLET PO SCH ×2 (07:25→20:03)
[2019-01-05] MEDS: INSULIN LISPRO 100 UNITS/ML, PEN SQ-INSULIN SCH ×4 (07:25→20:04)
[2019-01-05 07:28] VITALS: BP 160/83
[2019-01-05] MEDS: SODIUM CHLORIDE FLUSH 10ML SYR IVF SCH ×2 (07:33→20:02)
[2019-01-05] MEDS ORDERED: DIVA125C2 PO (11:57)
[2019-01-05] MEDS ORDERED: METH500T7 PO (11:57)
[2019-01-05] MEDS ORDERED: GABA300C10 PO (11:57)
[2019-01-05 12:50] VITALS: BP 134/75
[2019-01-05 19:36] VITALS: BP 124/64
[2019-01-05] MEDS: ATORVASTATIN 20 MG TABLET PO SCH (20:03)
[2019-01-06] MEDS: ENOXAPARIN 30 MG/0.3 ML SQ SCH (02:01)
[2019-01-06 03:02] VITALS: BP 159/80
[2019-01-06 06:59] VITALS: BP 175/84
[2019-01-06] MEDS: AMOXICILLIN/CLAV 875-125MG TABLET PO SCH ×2 (09:02→19:47)
[2019-01-06] MEDS: INSULIN LISPRO 100 UNITS/ML, PEN SQ-INSULIN SCH ×4 (09:02→20:00)
[2019-01-06] MEDS: DIVALPROEX 125 MG CAP.SPRINK PO SCH ×2 (09:03→19:47)
[2019-01-06] MEDS: SODIUM CHLORIDE FLUSH 10ML SYR IVF SCH ×2 (09:03→19:47)
--- NOTE | 2019-01-06 10:25 | NUR ---
Nursing Activity Sheet set up for patient the followin. Pt is to ambulate to the restroom with nursing assist. 2. Pt is to be up in the chair for all meals. 3. Seated B LE strengthening exercises: marching, knee extension, pillow adductor squeeze, ankle plantar/dorsiflexion. Reviewed the above with patient and patient's son Eva. Eva is agreeable to work on seated exercises with patient when he is here. Will also notify RN. Addendum: 01/06/19 at 1606 by CARLOS ALMAZAN PTA Amended: Links added.
[2019-01-06 12:35] VITALS: BP 105/61
[2019-01-06 19:08] VITALS: BP 109/58
[2019-01-06] MEDS: ACETAMINOPHEN 325 MG TABLET PO PRN (19:46)
[2019-01-06] MEDS: ATORVASTATIN 20 MG TABLET PO SCH (19:47)
[2019-01-07 01:40] VITALS: BP 156/84
[2019-01-07] MEDS: ENOXAPARIN 40 MG/0.4 ML SQ SCH (06:07)
[2019-01-07] MEDS: INSULIN LISPRO 100 UNITS/ML, PEN SQ-INSULIN SCH ×4 (06:08→22:02)
[2019-01-07 06:16] LABS: BASOPHILS # (AUTO) 0.02 x10^3/uL (0-0.1); BASOPHILS % (AUTO) 0 % (0-1); EOSINOPHILS # (AUTO) 0.05 x10^3/uL (0-0.4); EOSINOPHILS % (AUTO) 1 % (1-7); LYMPHOCYTES % (AUTO) 25 % (22-44); MD NO; MEAN CORPUSCULAR HEMOGLOBIN 31.8 pg (27.0-34.8); MEAN CORPUSCULAR HGB CONC 34.4 g/dL (32.4-35.8); MEAN CORPUSCULAR VOLUME 92.4 fL (80-100); MEAN PLATELET VOLUME 8.3 fL (7.4-10.4); MONOCYTES # (AUTO) 0.64 x10^3/uL (0.2-0.8); MONOCYTES % (AUTO) 8 % (2-9); NEUTROPHILS # (AUTO) 4.99 x10^3/uL (1.8-6.8); NEUTROPHILS % (AUTO) 66 % (42-75); PLATELET COUNT 380 x10^3/uL (130-400); RED BLOOD COUNT 4.52 x10^6/uL (3.82-5.3); RED CELL DISTRIBUTION WIDTH 13.6 % (9.6-15.2)
[2019-01-07 06:36] LABS: ALBUMIN 2.8 g/dL (3.4-5.0); ANION GAP 7 mmol/L (5-15); CALCIUM 8.6 mg/dL (8.5-10.1); CHLORIDE 100 mmol/L (98-107); CREATININE 0.46 mg/dL (0.55-1.02)
[2019-01-07 07:56] VITALS: BP 138/77
[2019-01-07] MEDS: AMOXICILLIN/CLAV 875-125MG TABLET PO SCH (09:09)
[2019-01-07] MEDS: DIVALPROEX 125 MG CAP.SPRINK PO SCH ×2 (09:09→22:02)
[2019-01-07] MEDS: SODIUM CHLORIDE FLUSH 10ML SYR IVF SCH ×2 (09:10→22:02)
[2019-01-07 13:49] VITALS: BP 108/61
[2019-01-07 18:29] VITALS: BP 117/73
[2019-01-07] MEDS: ACETAMINOPHEN 325 MG TABLET PO PRN (19:45)
[2019-01-07] MEDS: ATORVASTATIN 20 MG TABLET PO SCH (19:45)
[2019-01-07] MEDS: LIDODERM 5% PATCH TD PRN (19:46)
[2019-01-08 00:13] VITALS: BP 155/75
[2019-01-08] MEDS: ENOXAPARIN 40 MG/0.4 ML SQ SCH (06:05)
[2019-01-08] MEDS: ACETAMINOPHEN 325 MG TABLET PO PRN ×2 (06:05→20:19)
[2019-01-08] MEDS: INSULIN LISPRO 100 UNITS/ML, PEN SQ-INSULIN SCH ×4 (07:00→20:20)
[2019-01-08 07:58] VITALS: BP 135/66
[2019-01-08] MEDS: SODIUM CHLORIDE FLUSH 10ML SYR IVF SCH ×2 (10:03→20:21)
[2019-01-08] MEDS: DIVALPROEX 125 MG CAP.SPRINK PO SCH ×2 (10:03→20:19)
[2019-01-08] MEDS: DOCUSATE 100 MG CAPSULE PO PRN (10:03)
[2019-01-08 13:55] VITALS: BP 121/62
[2019-01-08 18:53] VITALS: BP 110/55
[2019-01-08] MEDS: ATORVASTATIN 20 MG TABLET PO SCH (20:19)
[2019-01-08] MEDS: LIDODERM 5% PATCH TD PRN (20:21)
[2019-01-09 01:06] VITALS: BP 139/88
[2019-01-09] MEDS: ACETAMINOPHEN 325 MG TABLET PO PRN ×2 (01:24→06:16)
[2019-01-09] MEDS: ENOXAPARIN 40 MG/0.4 ML SQ SCH (06:16)
[2019-01-09] MEDS: INSULIN LISPRO 100 UNITS/ML, PEN SQ-INSULIN SCH ×3 (07:13→16:24)
[2019-01-09 07:33] VITALS: BP 144/78
[2019-01-09] MEDS: DIVALPROEX 125 MG CAP.SPRINK PO SCH (08:07)
[2019-01-09] MEDS: DOCUSATE 100 MG CAPSULE PO PRN (08:08)
[2019-01-09] MEDS: SODIUM CHLORIDE FLUSH 10ML SYR IVF SCH ×2 (08:11→21:00)
[2019-01-09 12:23] VITALS: BP 98/60
[2019-01-09 18:22] VITALS: BP 127/65
[2019-01-10 00:20] VITALS: BP 161/81
[2019-01-10] MEDS: LIDODERM 5% PATCH TD PRN (00:23)
[2019-01-10] MEDS: ATORVASTATIN 20 MG TABLET PO SCH ×2 (00:23→20:19)
[2019-01-10] MEDS: DIVALPROEX 125 MG CAP.SPRINK PO SCH ×3 (00:24→20:19)
[2019-01-10] MEDS: INSULIN LISPRO 100 UNITS/ML, PEN SQ-INSULIN SCH ×5 (00:26→20:19)
[2019-01-10] MEDS: ACETAMINOPHEN 325 MG TABLET PO PRN ×2 (00:28→15:16)
[2019-01-10 05:54] LABS: HEMOGLOBIN A1C 7.2 % (4.2-6.3)
[2019-01-10 07:30] VITALS: BP 151/68
[2019-01-10] MEDS: ENOXAPARIN 40 MG/0.4 ML SQ SCH (07:43)
[2019-01-10 08:59] LABS: BASOPHILS # (AUTO) 0.02 x10^3/uL (0-0.1); BASOPHILS % (AUTO) 0 % (0-1); EOSINOPHILS # (AUTO) 0.01 x10^3/uL (0-0.4); EOSINOPHILS % (AUTO) 0 % (1-7); LYMPHOCYTES # (AUTO) 1.63 x10^3/uL (1-3.4); LYMPHOCYTES % (AUTO) 16 % (22-44); MD NO; MEAN CORPUSCULAR HGB CONC 33.1 g/dL (32.4-35.8); MEAN CORPUSCULAR VOLUME 93.7 fL (80-100); MEAN PLATELET VOLUME 9.6 fL (7.4-10.4); MONOCYTES % (AUTO) 6 % (2-9); NEUTROPHILS # (AUTO) 7.67 x10^3/uL (1.8-6.8); NEUTROPHILS % (AUTO) 77 % (42-75); PLATELET COUNT 356 x10^3/uL (130-400); RED BLOOD COUNT 4.41 x10^6/uL (3.82-5.3); RED CELL DISTRIBUTION WIDTH 13.4 % (9.6-15.2)
[2019-01-10 09:00] LABS: ALBUMIN 2.9 g/dL (3.4-5.0); ANION GAP 7 mmol/L (5-15); CALCIUM 8.9 mg/dL (8.5-10.1); CHLORIDE 104 mmol/L (98-107); CREATININE 0.39 mg/dL (0.55-1.02)
[2019-01-10] MEDS: SODIUM CHLORIDE FLUSH 10ML SYR IVF SCH ×3 (09:31→21:00)
[2019-01-10] MEDS: INSULIN GLARGINE 100 UNITS/ML, PEN SQ-INSULIN SCH ×2 (09:49→20:20)
[2019-01-10] MEDS ORDERED: POTASSIUM CHLORIDE 20 MEQ TAB.ER.PRT PO ONE ×3 (11:00→15:00)
[2019-01-10 12:10] VITALS: BP 147/74
[2019-01-10 19:22] VITALS: BP 160/80
[2019-01-10] MEDS ORDERED: POTASSIUM CHLORIDE 10% 40 MEQ/30 ML UDC PO ONE (20:00)
[2019-01-11 02:18] VITALS: BP 140/81
[2019-01-11 05:54] LABS: ANION GAP 6 mmol/L (5-15); CALCIUM 9.4 mg/dL (8.5-10.1); CHLORIDE 109 mmol/L (98-107); CREATININE 0.35 mg/dL (0.55-1.02)
[2019-01-11 06:40] VITALS: BP 152/66
[2019-01-11] MEDS: ENOXAPARIN 40 MG/0.4 ML SQ SCH (06:43)
[2019-01-11] MEDS: INSULIN LISPRO 100 UNITS/ML, PEN SQ-INSULIN SCH ×4 (07:30→22:40)
[2019-01-11] MEDS: INSULIN GLARGINE 100 UNITS/ML, PEN SQ-INSULIN SCH ×2 (08:33→22:40)
[2019-01-11] MEDS: DIVALPROEX 125 MG CAP.SPRINK PO SCH ×2 (08:33→22:42)
[2019-01-11] MEDS: SODIUM CHLORIDE FLUSH 10ML SYR IVF SCH ×2 (08:33→21:00)
[2019-01-11 13:02] VITALS: BP 154/75
[2019-01-11 20:32] VITALS: BP 161/84
[2019-01-11] MEDS: ATORVASTATIN 20 MG TABLET PO SCH (22:42)
[2019-01-12 02:21] VITALS: BP 141/83
[2019-01-12] MEDS: ENOXAPARIN 40 MG/0.4 ML SQ SCH (06:41)
[2019-01-12] MEDS: INSULIN LISPRO 100 UNITS/ML, PEN SQ-INSULIN SCH ×4 (07:00→21:10)
[2019-01-12 07:25] VITALS: BP 158/81
[2019-01-12] MEDS: SODIUM CHLORIDE FLUSH 10ML SYR IVF SCH ×2 (09:00→21:00)
[2019-01-12] MEDS: DIVALPROEX 125 MG CAP.SPRINK PO SCH ×2 (09:43→21:08)
[2019-01-12] MEDS: INSULIN GLARGINE 100 UNITS/ML, PEN SQ-INSULIN SCH ×2 (09:44→21:09)
[2019-01-12] MEDS: LISINOPRIL 5 MG TABLET PO SCH ×2 (09:45→21:08)
[2019-01-12 13:30] VITALS: BP 107/59
[2019-01-12 21:05] VITALS: BP 129/74
[2019-01-12] MEDS: ATORVASTATIN 20 MG TABLET PO SCH (21:08)
[2019-01-13 01:55] VITALS: BP 102/63
[2019-01-13] MEDS: ENOXAPARIN 40 MG/0.4 ML SQ SCH (05:55)
[2019-01-13] MEDS: INSULIN LISPRO 100 UNITS/ML, PEN SQ-INSULIN SCH ×4 (07:00→20:26)
[2019-01-13 07:40] VITALS: BP 125/72
[2019-01-13] MEDS: SODIUM CHLORIDE FLUSH 10ML SYR IVF SCH ×2 (09:00→20:11)
[2019-01-13] MEDS: DIVALPROEX 125 MG CAP.SPRINK PO SCH ×2 (10:01→20:11)
[2019-01-13] MEDS: LISINOPRIL 5 MG TABLET PO SCH ×2 (10:01→20:11)
[2019-01-13] MEDS: INSULIN GLARGINE 100 UNITS/ML, PEN SQ-INSULIN SCH ×2 (10:02→20:27)
[2019-01-13 13:15] VITALS: BP 99/62
[2019-01-13] MEDS: ACETAMINOPHEN 325 MG TABLET PO PRN ×2 (15:03→19:27)
[2019-01-13 19:41] VITALS: BP 109/54
[2019-01-13] MEDS: ATORVASTATIN 20 MG TABLET PO SCH (20:11)
[2019-01-14 01:07] VITALS: BP 102/54
[2019-01-14] MEDS: ENOXAPARIN 40 MG/0.4 ML SQ SCH (06:47)
[2019-01-14] MEDS: INSULIN LISPRO 100 UNITS/ML, PEN SQ-INSULIN SCH ×2 (06:50→11:37)
[2019-01-14 07:40] VITALS: BP 115/66
[2019-01-14] MEDS: DIVALPROEX 125 MG CAP.SPRINK PO SCH (08:15)
[2019-01-14] MEDS: LISINOPRIL 5 MG TABLET PO SCH (08:16)
[2019-01-14] MEDS: SODIUM CHLORIDE FLUSH 10ML SYR IVF SCH (08:17)
[2019-01-14] MEDS: INSULIN GLARGINE 100 UNITS/ML, PEN SQ-INSULIN SCH (08:17)
[2019-01-14 13:26] VITALS: BP 118/72
[2019-01-14] MEDS: ACETAMINOPHEN 325 MG TABLET PO PRN (13:41)
== END 2019-01-14 14:29 | disposition home or self-care (01) ==
LOC: ED 22:51 → INTOOBSV 23:24 → EDIP 23:24 → 4NOR 01-01 01:40
PROVIDERS: ADMIT Internal Medicine; ATTEND Internal Medicine
DX: M54.5 Low back pain (principal); E11.9 Type 2 diabetes mellitus without complications; E55.9 Vitamin D deficiency, unspecified; E46 Unspecified protein-calorie malnutrition; E78.5 Hyperlipidemia, unspecified; E87.6 Hypokalemia; F03.90 Unspecified dementia, unspecified severity, without behavioral disturbance, psychotic disturbance, mood disturbance, and anxiety; I69.354 Hemiplegia and hemiparesis following cerebral infarction affecting left non-dominant side; R64 Cachexia; Z79.4 Long term (current) use of insulin; Z79.899 Other long term (current) drug therapy; Z91.14 Patient's other noncompliance with medication regimen; Z91.19 Patient's noncompliance with other medical treatment and regimen
CPT/HCPCS: 36415; 71045; 72158; 80048; 80053; 82040; 82962; 83036; 83605; 83735; 84100; 84145; 85025; 87040; 92610; 93005; 96365; 96366; 96372; 96375; 97116; 97161; 97166; 97530; 99284; A9585; G0378; J0295; J1650; J1815; J2405; J2930; J7512; Q0163

== ENCOUNTER 2019-03-01 08:53 | Inpatient (IN) | payer MEDICARE ==
[~2019-03-01] VITALS: Ht 167.6 cm; Wt 37.5 kg
[~2019-03-01 08:53] MED LIST changes: +DIVA125C2 PO; +GABA300C10 PO; +METH500T7 PO
[2019-03-01] MEDS ORDERED: SODIUM CHLORIDE FLUSH 10ML SYR IVF ONE (10:00)
[2019-03-01] MEDS ORDERED: SODIUM CHLORIDE 0.9% 1,000ML IVBOLUS ONE (10:00)
[2019-03-01 10:16] LABS: BASOPHILS # (AUTO) 0.01 x10^3/uL (0-0.1); BASOPHILS % (AUTO) 0 % (0-1); EOSINOPHILS # (AUTO) 0.03 x10^3/uL (0-0.4); EOSINOPHILS % (AUTO) 1 % (1-7); LYMPHOCYTES # (AUTO) 1.28 x10^3/uL (1-3.4); LYMPHOCYTES % (AUTO) 23 % (22-44); MD NO; MEAN CORPUSCULAR HEMOGLOBIN 31.4 pg (27.0-34.8); MEAN CORPUSCULAR HGB CONC 33.7 g/dL (32.4-35.8); MEAN CORPUSCULAR VOLUME 93.3 fL (80-100); MEAN PLATELET VOLUME 8.9 fL (7.4-10.4); MONOCYTES # (AUTO) 0.46 x10^3/uL (0.2-0.8); MONOCYTES % (AUTO) 8 % (2-9); NEUTROPHILS # (AUTO) 3.91 x10^3/uL (1.8-6.8); NEUTROPHILS % (AUTO) 69 % (42-75); PLATELET COUNT 327 x10^3/uL (130-400); RED BLOOD COUNT 4.13 x10^6/uL (3.82-5.3); RED CELL DISTRIBUTION WIDTH 13.8 % (9.6-15.2)
[2019-03-01 10:30] LABS: ALANINE AMINOTRANSFERASE 22 U/L (12-78); ALBUMIN 3.1 g/dL (3.4-5.0); ANION GAP 8 mmol/L (5-15); CALCIUM 8.9 mg/dL (8.5-10.1); CHLORIDE 99 mmol/L (98-107); CREATININE 0.45 mg/dL (0.55-1.02)
[2019-03-01 10:35] LABS: ALKALINE PHOSPHATASE 168 U/L (45-117); BILIRUBIN,TOTAL 0.5 mg/dL (0.2-1.0); TOTAL PROTEIN 7.3 g/dL (6.4-8.2); TROPONIN I < 0.015 ng/mL (0.000-0.045)
[2019-03-01 10:44] LABS: MICROSCOPIC NOT IND
[2019-03-01 10:47] LABS: CULTURE INDICATED? NO
--- NOTE | 2019-03-01 11:33 | NUR ---
PROVIDED SNACK. NO DISTRESS AT THIS TIME
[2019-03-01] MEDS ORDERED: POTASSIUM CHLORIDE 40 MEQ in SODIUM CHLORIDE 0.9% 500 ML IV ONE (12:00)
--- NOTE | 2019-03-01 12:24 | NUR ---
IV FLUIDS WITH POTASIUM INFUSING PER ORDERS. MD RE-EVALUATING PT
--- NOTE | 2019-03-01 13:10 | NUR ---
PT AWARE OF PENDING ADMISSION. PT INCONTINENT OF URINE AND DEPEND CHANGED. SKIN CLEAR IN COCCYX AREA
[2019-03-01 13:34] LABS: FREE T4 (FREE THYROXINE) 1.23 ng/dL (0.76-1.46)
[2019-03-01] MEDS ORDERED: GABAPENTIN 300 MG CAPSULE PO PRN (14:00)
[2019-03-01] MEDS ORDERED: ACETAMINOPHEN 325 MG TABLET PO PRN (14:00)
[2019-03-01] MEDS ORDERED: METHOCARBAMOL 500 MG TABLET PO PRN (14:00)
[2019-03-01] MEDS ORDERED: ONDANSETRON 2MG/ML, 2ML IVPush PRN (14:00)
[2019-03-01] MEDS ORDERED: hydrALAzine 20 MG/ML, 1ML IVPush PRN (14:00)
[2019-03-01] MEDS ORDERED: ERGOCALCIFEROL 50,000 UNIT CAPSULE PO SCH (14:00)
--- NOTE | 2019-03-01 14:11 | NUR ---
REPORT TO SALEEM. PT TO BE TRANSPORTED ON [facility] WITH STAFF
[2019-03-01] MEDS ORDERED: HEPARIN 5,000 UNITS/ML, 1ML ONE (14:16)
[2019-03-01] MEDS: HEPARIN 5,000 UNITS/ML, 1ML SQ SCH ×2 (14:21→20:23)
[2019-03-01 15:05] VITALS: BP 147/78
[2019-03-01 15:18] VITALS: BP 147/78
[2019-03-01] MEDS: INSULIN LISPRO 100 UNITS/ML, PEN SQ-INSULIN SCH ×2 (17:35→20:24)
[2019-03-01 20:00] VITALS: BP 153/70
[2019-03-01] MEDS ORDERED: POTASSIUM CHLORIDE 20 MEQ TAB.ER.PRT PO ONE (20:00)
[2019-03-01] MEDS: DIVALPROEX 125 MG CAP.SPRINK PO SCH (20:24)
[2019-03-01] MEDS: ATORVASTATIN 20 MG TABLET PO SCH (20:24)
[2019-03-01] MEDS: metFORMIN 500 MG TABLET PO SCH (20:24)
[2019-03-02 02:00] VITALS: BP 153/71
[2019-03-02 05:02] LABS: BASOPHILS # (AUTO) 0.04 x10^3/uL (0-0.1); BASOPHILS % (AUTO) 1 % (0-1); EOSINOPHILS # (AUTO) 0.06 x10^3/uL (0-0.4); EOSINOPHILS % (AUTO) 1 % (1-7); LYMPHOCYTES % (AUTO) 33 % (22-44); MD NO; MEAN CORPUSCULAR HEMOGLOBIN 32.5 pg (27.0-34.8); MEAN CORPUSCULAR HGB CONC 34.8 g/dL (32.4-35.8); MEAN CORPUSCULAR VOLUME 93.3 fL (80-100); MEAN PLATELET VOLUME 8.6 fL (7.4-10.4); MONOCYTES # (AUTO) 0.35 x10^3/uL (0.2-0.8); MONOCYTES % (AUTO) 7 % (2-9); NEUTROPHILS # (AUTO) 2.79 x10^3/uL (1.8-6.8); NEUTROPHILS % (AUTO) 58 % (42-75); PLATELET COUNT 307 x10^3/uL (130-400); RED BLOOD COUNT 3.72 x10^6/uL (3.82-5.3)
[2019-03-02 05:20] LABS: ALBUMIN 2.8 g/dL (3.4-5.0); ANION GAP 6 mmol/L (5-15); CALCIUM 8.6 mg/dL (8.5-10.1); CHLORIDE 106 mmol/L (98-107)
[2019-03-02 05:25] LABS: ALANINE AMINOTRANSFERASE 17 U/L (12-78); ALKALINE PHOSPHATASE 122 U/L (45-117); BILIRUBIN,TOTAL 0.7 mg/dL (0.2-1.0); TOTAL PROTEIN 6.5 g/dL (6.4-8.2)
[2019-03-02] MEDS: HEPARIN 5,000 UNITS/ML, 1ML SQ SCH ×3 (05:39→20:07)
[2019-03-02] MEDS: INSULIN LISPRO 100 UNITS/ML, PEN SQ-INSULIN SCH ×4 (07:00→20:15)
[2019-03-02 07:05] VITALS: BP 160/81
[2019-03-02] MEDS: DIVALPROEX 125 MG CAP.SPRINK PO SCH ×2 (08:19→20:06)
[2019-03-02] MEDS: metFORMIN 500 MG TABLET PO SCH ×2 (08:20→20:06)
[2019-03-02] MEDS ORDERED: POTASSIUM CHLORIDE 20 MEQ TAB.ER.PRT PO ONE (09:00)
[2019-03-02] MEDS: AMLODIPINE 5 MG TABLET PO SCH (09:27)
[2019-03-02 13:49] VITALS: BP 119/70
[2019-03-02 19:09] VITALS: BP 153/79
[2019-03-02] MEDS: ATORVASTATIN 20 MG TABLET PO SCH (20:06)
[2019-03-03 01:26] VITALS: BP 129/73
[2019-03-03] MEDS: HEPARIN 5,000 UNITS/ML, 1ML SQ SCH ×2 (06:13→14:00)
[2019-03-03 06:34] VITALS: BP 132/73
[2019-03-03] MEDS: metFORMIN 500 MG TABLET PO SCH (08:16)
[2019-03-03] MEDS: INSULIN LISPRO 100 UNITS/ML, PEN SQ-INSULIN SCH ×3 (08:16→16:45)
[2019-03-03] MEDS: DIVALPROEX 125 MG CAP.SPRINK PO SCH (08:16)
[2019-03-03] MEDS: AMLODIPINE 5 MG TABLET PO SCH (08:16)
[2019-03-03 12:46] VITALS: BP 118/63
== END 2019-03-03 18:26 | disposition hospice, home (50) | DRG 641 ==
LOC: ED 10:23 → EDIP 12:36 → 3NE 13:57
PROVIDERS: ADMIT Internal Medicine; ATTEND Internal Medicine
PROC: 0T9B70Z Drainage of Bladder with Drainage Device, Via Natural or Artificial Opening (ICD-10-PCS; principal; 2019-03-01)
DX: R62.7 Adult failure to thrive (principal); Z68.1 Body mass index [BMI] 19.9 or less, adult; E87.1 Hypo-osmolality and hyponatremia; Z51.5 Encounter for palliative care; E11.65 Type 2 diabetes mellitus with hyperglycemia; I10 Essential (primary) hypertension; Z66 Do not resuscitate; F03.90 Unspecified dementia, unspecified severity, without behavioral disturbance, psychotic disturbance, mood disturbance, and anxiety; E86.0 Dehydration; E87.6 Hypokalemia; M54.9 Dorsalgia, unspecified; G89.29 Other chronic pain; Z86.73 Personal history of transient ischemic attack (TIA), and cerebral infarction without residual deficits; Z79.84 Long term (current) use of oral hypoglycemic drugs
CPT/HCPCS: 36415; 71045; 80053; 81003; 82962; 83605; 83880; 84145; 84439; 84443; 84484; 85025; 87040; 93005; 96374; 99285; G0378; J1644; J3480; J7030; J7040

== ENCOUNTER 2019-04-04 15:24 | Emergency (ER) | payer MEDICARE ==
[~2019-04-04] VITALS: Ht 167.6 cm; Wt 48.0 kg
[2019-04-04] MEDS ORDERED: SODIUM CHLORIDE 0.9% 1,000ML IVBOLUS ONE (16:30)
[2019-04-04] MEDS ORDERED: SODIUM CHLORIDE FLUSH 10ML SYR IVF ONE (16:30)
[2019-04-04 16:39] LABS: BASOPHILS # (AUTO) 0.02 x10^3/uL (0-0.1); BASOPHILS % (AUTO) 0 % (0-1); EOSINOPHILS % (AUTO) 0 % (1-7); LYMPHOCYTES # (AUTO) 0.72 x10^3/uL (1-3.4); LYMPHOCYTES % (AUTO) 6 % (22-44); MD NO; MEAN CORPUSCULAR HEMOGLOBIN 31.8 pg (27.0-34.8); MEAN CORPUSCULAR HGB CONC 34.3 g/dL (32.4-35.8); MEAN CORPUSCULAR VOLUME 92.7 fL (80-100); MEAN PLATELET VOLUME 8.9 fL (7.4-10.4); MONOCYTES # (AUTO) 0.56 x10^3/uL (0.2-0.8); MONOCYTES % (AUTO) 5 % (2-9); NEUTROPHILS # (AUTO) 10.79 x10^3/uL (1.8-6.8); NEUTROPHILS % (AUTO) 89 % (42-75); PLATELET COUNT 293 x10^3/uL (130-400); RED BLOOD COUNT 4.24 x10^6/uL (3.82-5.3); RED CELL DISTRIBUTION WIDTH 12.9 % (9.6-15.2)
[2019-04-04 16:44] LABS: ALANINE AMINOTRANSFERASE 21 U/L (12-78); ANION GAP 8 mmol/L (5-15); CALCIUM 8.8 mg/dL (8.5-10.1); CHLORIDE 103 mmol/L (98-107); CREATININE 0.53 mg/dL (0.55-1.02)
[2019-04-04 16:48] LABS: ALKALINE PHOSPHATASE 118 U/L (45-117); BILIRUBIN,TOTAL 0.4 mg/dL (0.2-1.0); TOTAL PROTEIN 7.1 g/dL (6.4-8.2); TROPONIN I < 0.015 ng/mL (0.000-0.045)
[2019-04-04] MEDS ORDERED: POTASSIUM CHLORIDE 20 MEQ TAB.ER.PRT ONE (16:59)
[2019-04-04] MEDS ORDERED: POTASSIUM CHLORIDE 10% 40 MEQ/30 ML UDC PO ONE (17:00)
--- NOTE | 2019-04-04 17:15 | NUR ---
UA SENT to lab. Assisted pt to bedpan. Provided perineal cleaning. Pt appreciative.
[2019-04-04] MEDS ORDERED: POTASSIUM CHLORIDE 10% 40 MEQ/30 ML UDC ONE (17:17)
[2019-04-04 17:39] LABS: MICROSCOPIC NOT IND
[2019-04-04 17:40] LABS: CULTURE INDICATED? NO
--- NOTE | 2019-04-04 18:23 | NUR ---
AWAITING SW CONSULT
--- NOTE | 2019-04-04 18:45 | NUR ---
son to machine operator hop picker at 1930
--- NOTE | 2019-04-04 19:00 | NUR ---
kirby sbar to qamar
[2019-04-04 19:31] VITALS: BP 124/81
--- NOTE | 2019-04-04 19:31 | NUR ---
PT ASSISTED WITH GETTING DRESSED. PT STATED SHE NEEDS TO POOP. PT PLACED ON BEDSIDE COMMODE. PT RIDE IS HERE. PT VSS. IV REMOVED.
== END 2019-04-04 19:44 | disposition home or self-care (01) ==
LOC: ED 15:45
DX: E11.65 Type 2 diabetes mellitus with hyperglycemia (principal); K59.00 Constipation, unspecified; E87.6 Hypokalemia; I10 Essential (primary) hypertension; Z86.73 Personal history of transient ischemic attack (TIA), and cerebral infarction without residual deficits
CPT/HCPCS: 36415; 74022; 80053; 81003; 83605; 83880; 84484; 85025; 93005; 96360; 99284; J7030

== ENCOUNTER 2019-04-15 15:31 | Inpatient (IN) | payer MEDICARE ==
[~2019-04-15] VITALS: Ht 165.1 cm; Wt 38.7 kg
[2019-04-15] MEDS ORDERED: SODIUM CHLORIDE FLUSH 10ML SYR IVF ONE (16:00)
[2019-04-15 16:19] LABS: BASOPHILS # (AUTO) 0.03 x10^3/uL (0-0.1); BASOPHILS % (AUTO) 0 % (0-1); EOSINOPHILS # (AUTO) 0.01 x10^3/uL (0-0.4); EOSINOPHILS % (AUTO) 0 % (1-7); LYMPHOCYTES # (AUTO) 0.88 x10^3/uL (1-3.4); LYMPHOCYTES % (AUTO) 9 % (22-44); MD NO; MEAN CORPUSCULAR HGB CONC 34.2 g/dL (32.4-35.8); MEAN CORPUSCULAR VOLUME 93.5 fL (80-100); MEAN PLATELET VOLUME 9.1 fL (7.4-10.4); MONOCYTES # (AUTO) 0.44 x10^3/uL (0.2-0.8); MONOCYTES % (AUTO) 5 % (2-9); NEUTROPHILS # (AUTO) 8.31 x10^3/uL (1.8-6.8); NEUTROPHILS % (AUTO) 86 % (42-75); PLATELET COUNT 279 x10^3/uL (130-400); RED BLOOD COUNT 4.52 x10^6/uL (3.82-5.3); RED CELL DISTRIBUTION WIDTH 13.1 % (9.6-15.2)
[2019-04-15 16:35] LABS: ALANINE AMINOTRANSFERASE 19 U/L (12-78); ALBUMIN 2.9 g/dL (3.4-5.0); ANION GAP 7 mmol/L (5-15); CALCIUM 8.9 mg/dL (8.5-10.1); CHLORIDE 103 mmol/L (98-107); CREATININE 0.51 mg/dL (0.55-1.02)
[2019-04-15 16:37] LABS: ALKALINE PHOSPHATASE 108 U/L (45-117); BILIRUBIN,TOTAL 0.9 mg/dL (0.2-1.0); TOTAL PROTEIN 7.3 g/dL (6.4-8.2)
[2019-04-15] MEDS ORDERED: NS + 40MEQ KCL 1,000 ML IV ONE ×2 (16:42→17:43)
[2019-04-15] MEDS ORDERED: POTASSIUM CHLORIDE 20 MEQ TAB.ER.PRT PO ONE (17:00)
[2019-04-15] MEDS: PLEASE ENTER HEIGHT AND WEIGHT MC SCH ×2 (17:00→17:30)
[2019-04-15] MEDS ORDERED: ACETAMINOPHEN 325 MG TABLET PO PRN (17:30)
[2019-04-15] MEDS ORDERED: ENOXAPARIN 40 MG/0.4 ML SQ SCH (17:30)
[2019-04-15] MEDS ORDERED: GABAPENTIN 300 MG CAPSULE PO PRN (17:30)
[2019-04-15] MEDS ORDERED: SODIUM CHLORIDE 0.9% 500 ML IV SCH (17:30)
[2019-04-15] MEDS ORDERED: ONDANSETRON 2MG/ML, 2ML IVPush PRN (17:30)
[2019-04-15] MEDS ORDERED: POTASSIUM CHLORIDE 40 MEQ in SODIUM CHLORIDE 0.9% 500 ML IV ONE (17:30)
[2019-04-15] MEDS ORDERED: ERGOCALCIFEROL 50,000 UNIT CAPSULE PO SCH (17:30)
[2019-04-15] MEDS ORDERED: POTASSIUM CHLORIDE 20 MEQ TAB.ER.PRT PO SCH (17:30)
[2019-04-15] MEDS ORDERED: LABETALOL 5MG/ML, 20ML IVPush PRN (17:30)
[2019-04-15] MEDS ORDERED: ASPI-496 PO (17:41)
[2019-04-15] MEDS ORDERED: POTASSIUM CHLORIDE 20 MEQ TAB.ER.PRT ONE (17:54)
[2019-04-15 18:26] LABS: CULTURE INDICATED? YES; MICROSCOPIC INDICATED
[2019-04-15 18:51] VITALS: BP 142/83
[2019-04-15] MEDS: POTASSIUM CHLORIDE 20 MEQ TAB.ER.PRT PO SCH (19:58)
[2019-04-15] MEDS: ATORVASTATIN 20 MG TABLET PO SCH (19:58)
[2019-04-15] MEDS: DIVALPROEX 125 MG CAP.SPRINK PO SCH (19:58)
[2019-04-15] MEDS: SODIUM CHLORIDE 0.9% 1,000 ML IV SCH (20:02)
[2019-04-15] MEDS: INSULIN LISPRO 100 UNITS/ML, PEN SQ-INSULIN SCH ×2 (20:44→21:02)
[2019-04-16 00:59] VITALS: BP 156/80
[2019-04-16] MEDS: PLEASE ENTER HEIGHT AND WEIGHT MC SCH ×3 (01:00→09:08)
[2019-04-16] MEDS: SODIUM CHLORIDE 0.9% 1,000 ML IV SCH ×2 (03:42→21:15)
[2019-04-16 06:00] LABS: BASOPHILS # (AUTO) 0.03 x10^3/uL (0-0.1); BASOPHILS % (AUTO) 0 % (0-1); EOSINOPHILS # (AUTO) 0.02 x10^3/uL (0-0.4); EOSINOPHILS % (AUTO) 0 % (1-7); LYMPHOCYTES # (AUTO) 1.48 x10^3/uL (1-3.4); LYMPHOCYTES % (AUTO) 18 % (22-44); MD NO; MEAN CORPUSCULAR HEMOGLOBIN 32.1 pg (27.0-34.8); MEAN CORPUSCULAR HGB CONC 34.3 g/dL (32.4-35.8); MEAN CORPUSCULAR VOLUME 93.8 fL (80-100); MEAN PLATELET VOLUME 9.2 fL (7.4-10.4); MONOCYTES # (AUTO) 0.49 x10^3/uL (0.2-0.8); MONOCYTES % (AUTO) 6 % (2-9); NEUTROPHILS # (AUTO) 6.37 x10^3/uL (1.8-6.8); NEUTROPHILS % (AUTO) 76 % (42-75); PLATELET COUNT 257 x10^3/uL (130-400); RED BLOOD COUNT 4.13 x10^6/uL (3.82-5.3); RED CELL DISTRIBUTION WIDTH 13.1 % (9.6-15.2)
[2019-04-16 06:10] LABS: ANION GAP 6 mmol/L (5-15); CHLORIDE 107 mmol/L (98-107); CREATININE 0.34 mg/dL (0.55-1.02)
[2019-04-16] MEDS: INSULIN LISPRO 100 UNITS/ML, PEN SQ-INSULIN SCH ×4 (07:00→21:07)
[2019-04-16] MEDS ORDERED: POTASSIUM CHLORIDE 40 MEQ in SODIUM CHLORIDE 0.9% 500 ML IV ONE (08:00)
[2019-04-16] MEDS ORDERED: MAGNESIUM SULFATE PMX 2GM/50ML 50 ML IV ONE (08:00)
[2019-04-16 08:20] VITALS: BP 160/78
[2019-04-16] MEDS: LISINOPRIL 20 MG TABLET PO SCH ×2 (09:07→21:08)
[2019-04-16] MEDS: NEUTRA PHOS K 250 MG TABLET PO SCH ×3 (09:07→21:07)
[2019-04-16] MEDS: ASPIRIN 81 MG TABLET EC PO SCH (09:07)
[2019-04-16] MEDS: DIVALPROEX 125 MG CAP.SPRINK PO SCH ×2 (09:07→21:08)
[2019-04-16] MEDS: POTASSIUM CHLORIDE 20 MEQ TAB.ER.PRT PO SCH ×3 (09:08→21:07)
[2019-04-16] MEDS: CEFTRIAXONE PMX 1GM/50ML 50 ML IV SCH (12:26)
[2019-04-16 12:45] LABS: ANION GAP 7 mmol/L (5-15); CALCIUM 8.5 mg/dL (8.5-10.1); CHLORIDE 105 mmol/L (98-107); CREATININE 0.29 mg/dL (0.55-1.02)
[2019-04-16 14:15] VITALS: BP 119/65
[2019-04-16] MEDS ORDERED: ENOXAPARIN 30 MG/0.3 ML SQ SCH (17:30)
[2019-04-16 18:47] VITALS: BP 129/67
[2019-04-16] MEDS: ATORVASTATIN 20 MG TABLET PO SCH (21:07)
[2019-04-16] MEDS: ENOXAPARIN 40 MG/0.4 ML SQ SCH (21:09)
[2019-04-16 21:10] VITALS: BP 146/76
[2019-04-17 00:57] VITALS: BP 159/79
[2019-04-17 05:53] LABS: ALBUMIN 2.4 g/dL (3.4-5.0); ANION GAP 6 mmol/L (5-15); CALCIUM 8.1 mg/dL (8.5-10.1); CHLORIDE 108 mmol/L (98-107)
[2019-04-17 05:57] LABS: ALANINE AMINOTRANSFERASE 41 U/L (12-78); ALKALINE PHOSPHATASE 99 U/L (45-117); BILIRUBIN,TOTAL 0.6 mg/dL (0.2-1.0); CREATININE 0.34 mg/dL (0.55-1.02); TOTAL PROTEIN 6.1 g/dL (6.4-8.2)
[2019-04-17 06:50] VITALS: BP 148/81
[2019-04-17] MEDS: NEUTRA PHOS K 250 MG TABLET PO SCH ×3 (09:15→20:41)
[2019-04-17] MEDS: POTASSIUM CHLORIDE 20 MEQ TAB.ER.PRT PO SCH ×3 (09:15→20:41)
[2019-04-17] MEDS: ASPIRIN 81 MG TABLET EC PO SCH (09:15)
[2019-04-17] MEDS: metFORMIN 500 MG TABLET PO SCH ×2 (09:15→16:41)
[2019-04-17] MEDS: DIVALPROEX 125 MG CAP.SPRINK PO SCH ×2 (09:15→20:41)
[2019-04-17] MEDS: LISINOPRIL 20 MG TABLET PO SCH ×2 (09:16→20:41)
[2019-04-17] MEDS: INSULIN LISPRO 100 UNITS/ML, PEN SQ-INSULIN SCH ×4 (09:22→20:47)
[2019-04-17] MEDS: SODIUM CHLORIDE 0.9% 1,000 ML IV SCH (10:30)
[2019-04-17] MEDS: CEFTRIAXONE PMX 1GM/50ML 50 ML IV SCH (12:38)
[2019-04-17 13:46] VITALS: BP 110/68
[2019-04-17 18:55] VITALS: BP 155/77
[2019-04-17] MEDS: ATORVASTATIN 20 MG TABLET PO SCH (20:41)
[2019-04-17] MEDS: ENOXAPARIN 40 MG/0.4 ML SQ SCH (20:42)
[2019-04-18] MEDS: SODIUM CHLORIDE 0.9% 1,000 ML IV SCH ×2 (00:09→13:33)
[2019-04-18 00:18] VITALS: BP 145/61
[2019-04-18 06:42] LABS: ANION GAP 6 mmol/L (5-15); CALCIUM 8.6 mg/dL (8.5-10.1); CHLORIDE 108 mmol/L (98-107); CREATININE 0.39 mg/dL (0.55-1.02)
[2019-04-18] MEDS: INSULIN LISPRO 100 UNITS/ML, PEN SQ-INSULIN SCH ×4 (07:00→20:48)
[2019-04-18 08:05] VITALS: BP 163/80
[2019-04-18] MEDS: CEFDINIR 300 MG CAPSULE PO SCH ×2 (08:14→20:47)
[2019-04-18] MEDS: metFORMIN 500 MG TABLET PO SCH ×2 (08:14→16:23)
[2019-04-18] MEDS: NEUTRA PHOS K 250 MG TABLET PO SCH ×3 (08:14→20:47)
[2019-04-18] MEDS: LISINOPRIL 20 MG TABLET PO SCH ×2 (08:14→20:47)
[2019-04-18] MEDS: ASPIRIN 81 MG TABLET EC PO SCH (08:14)
[2019-04-18] MEDS: POTASSIUM CHLORIDE 20 MEQ TAB.ER.PRT PO SCH ×3 (08:14→20:48)
[2019-04-18] MEDS: DIVALPROEX 125 MG CAP.SPRINK PO SCH ×2 (08:14→20:47)
[2019-04-18 13:30] VITALS: BP 152/77
[2019-04-18 18:44] VITALS: BP_SYST 127; BP_SYST 168; BP_DIAS 79; BP_DIAS 91
[2019-04-18 18:57] LABS: CLOSTRIDIUM DIFFICILE ANTIGEN NEGATIVE; CLOSTRIDIUM DIFFICILE TOXIN NEGATIVE (Negative)
[2019-04-18] MEDS: ENOXAPARIN 30 MG/0.3 ML SQ SCH (20:47)
[2019-04-18] MEDS: ATORVASTATIN 20 MG TABLET PO SCH (20:47)
[2019-04-19 01:21] VITALS: BP 124/64
[2019-04-19] MEDS: SODIUM CHLORIDE 0.9% 1,000 ML IV SCH ×2 (02:40→17:01)
[2019-04-19] MEDS: INSULIN LISPRO 100 UNITS/ML, PEN SQ-INSULIN SCH ×4 (07:00→21:00)
[2019-04-19 08:00] VITALS: BP 127/74
[2019-04-19] MEDS: metFORMIN 500 MG TABLET PO SCH ×2 (08:00→17:00)
[2019-04-19] MEDS: POTASSIUM CHLORIDE 20 MEQ TAB.ER.PRT PO SCH ×2 (09:00→22:11)
[2019-04-19] MEDS: ASPIRIN 81 MG TABLET EC PO SCH (09:00)
[2019-04-19] MEDS: CEFDINIR 300 MG CAPSULE PO SCH ×2 (09:00→22:11)
[2019-04-19] MEDS: NEUTRA PHOS K 250 MG TABLET PO SCH ×3 (09:00→22:11)
[2019-04-19] MEDS: LISINOPRIL 20 MG TABLET PO SCH ×2 (09:00→22:12)
[2019-04-19] MEDS: DIVALPROEX 125 MG CAP.SPRINK PO SCH ×2 (09:00→22:11)
[2019-04-19 12:42] VITALS: BP 129/71
[2019-04-19 19:23] VITALS: BP 142/86
[2019-04-19] MEDS: ENOXAPARIN 30 MG/0.3 ML SQ SCH (21:00)
[2019-04-19] MEDS: ATORVASTATIN 20 MG TABLET PO SCH (22:11)
[2019-04-20 00:15] VITALS: BP 147/82
[2019-04-20] MEDS: SODIUM CHLORIDE 0.9% 1,000 ML IV SCH (05:02)
[2019-04-20] MEDS: INSULIN LISPRO 100 UNITS/ML, PEN SQ-INSULIN SCH ×2 (07:00→11:00)
[2019-04-20 07:46] VITALS: BP 153/78
[2019-04-20] MEDS ORDERED: metFORMIN 500 MG TABLET PO SCH (08:00)
[2019-04-20] MEDS: POTASSIUM CHLORIDE 20 MEQ TAB.ER.PRT PO SCH (09:00)
[2019-04-20] MEDS: CEFDINIR 300 MG CAPSULE PO SCH (09:00)
[2019-04-20] MEDS: NEUTRA PHOS K 250 MG TABLET PO SCH (09:00)
[2019-04-20] MEDS: DIVALPROEX 125 MG CAP.SPRINK PO SCH (09:00)
[2019-04-20] MEDS: LISINOPRIL 20 MG TABLET PO SCH (09:00)
[2019-04-20] MEDS: ASPIRIN 81 MG TABLET EC PO SCH (09:00)
[2019-04-20 13:36] VITALS: BP 112/62
== END 2019-04-20 14:15 | disposition home or self-care (01) | DRG 640 ==
LOC: ED 15:56 → EDIP 16:40 → 4WST 18:22 → 3NE 04-19 01:15
PROVIDERS: ADMIT Internal Medicine; ATTEND Internal Medicine
PROC: 0T9B70Z Drainage of Bladder with Drainage Device, Via Natural or Artificial Opening (ICD-10-PCS; principal; 2019-04-15)
DX: E86.0 Dehydration (principal); E43 Unspecified severe protein-calorie malnutrition; N39.0 Urinary tract infection, site not specified; I69.354 Hemiplegia and hemiparesis following cerebral infarction affecting left non-dominant side; Z68.1 Body mass index [BMI] 19.9 or less, adult; G89.29 Other chronic pain; R29.6 Repeated falls; R53.81 Other malaise; E11.65 Type 2 diabetes mellitus with hyperglycemia; E78.5 Hyperlipidemia, unspecified; E83.39 Other disorders of phosphorus metabolism; E87.6 Hypokalemia; F03.90 Unspecified dementia, unspecified severity, without behavioral disturbance, psychotic disturbance, mood disturbance, and anxiety; I10 Essential (primary) hypertension; R62.7 Adult failure to thrive; Z51.5 Encounter for palliative care; Z66 Do not resuscitate; Z87.891 Personal history of nicotine dependence; Z90.710 Acquired absence of both cervix and uterus; Z91.81 History of falling
CPT/HCPCS: 36415; 71045; 80048; 80053; 81001; 82962; 83605; 83735; 84100; 84443; 85025; 87040; 87086; 87324; 93005; 96365; 99285; G0378; J0696; J1650; J3480; 92523-GN; G0515-GN; J1815; J3475; J7030; J7040